=== PATIENT | female | born 1955 | race Caucasian/White ===

== ENCOUNTER 2020-03-07 09:14 | Outpatient (CLI) | payer OTHER, SELFPAY ==
--- NOTE | ~2020-03-07 | MM_ITS ---
EXAMINATION: MM screening [facility] w al HISTORY: Screening mammogram TECHNIQUE: Craniocaudal and mediolateral oblique 3-D tomosynthesis images were obtained and synthetic 2-D images were generated. CAD analysis was submitted and interpreted. COMPARISON: Comparison to multiple prior studies sequentially, with oldest reviewed study dated 10/2013. BREAST PARENCHYMAL COMPOSITION: There are scattered areas of fibroglandular density. FINDINGS: There is no evidence of suspicious mass, calcification, or architectural distortion to sugg est malignancy in either breast. There has been no suspicious interval change. IMPRESSION: 1. No mammographic evidence of malignancy. 2. Recommend routine screening mammography in one year. BI-RADS Category 1: Negative Reviewed, dictated and finalized at location A.
== END 2020-03-07 09:15 | disposition home or self-care (01) ==
LOC: ANHIMG 09:20
PROVIDERS: Visit Provider Obstetrics & Gynecology
DX: Z12.31 Encounter for screening mammogram for malignant neoplasm of breast (principal)
CPT/HCPCS: 77063; 77067

== ENCOUNTER 2021-03-12 10:00 | Outpatient (CLI) | payer MEDICARE, SELFPAY ==
--- NOTE | ~2021-03-12 | MM_ITS ---
EXAMINATION: MM screening [facility] w al HISTORY: Screening mammogram TECHNIQUE: Craniocaudal and mediolateral oblique 3-D tomosynthesis images were obtained and synthetic 2-D images were generated. CAD analysis was submitted and interpreted. COMPARISON: 03/07/2020, 03/06/2019, 03/02/2018 BREAST PARENCHYMAL COMPOSITION: The breasts are heterogeneously dense, which may obscure small masses . FINDINGS: Scattered benign-appearing calcifications are present. There is no evidence of suspicious m ass, calcification, or architectural distortion to suggest malignancy in either breast. There has bee n no suspicious interval change. IMPRESSION: 1. No mammographic evidence of malignancy. 2. Recommend routine screening mammography in one year. BI-RADS Category 2: Benign finding(s). Reviewed, dictated and finalized at location A.
== END 2021-03-12 10:01 | disposition home or self-care (01) ==
LOC: ANHIMG 10:06
PROVIDERS: PCP Family Medicine; Visit Provider Obstetrics & Gynecology
DX: Z12.31 Encounter for screening mammogram for malignant neoplasm of breast (principal)
CPT/HCPCS: 77063; 77067

== ENCOUNTER 2022-03-16 09:48 | Outpatient (CLI) | payer MEDICARE, SELFPAY ==
--- NOTE | ~2022-03-16 | MM_ITS ---
EXAMINATION: MM screening [facility] w al HISTORY: Screening mammogram TECHNIQUE: Craniocaudal and mediolateral oblique 3-D tomosynthesis images were obtained and synthetic 2-D images were generated. CAD analysis was submitted and interpreted. COMPARISON: 03/12/2021, 03/07/2020, 03/06/2019 BREAST PARENCHYMAL COMPOSITION: The breasts are heterogeneously dense, which may obscure small masses . FINDINGS: Scattered benign-appearing calcifications are present. There is no suspicious mass, calcifi cation, or architectural distortion to suggest malignancy in either breast. There has been no suspici ous interval change. IMPRESSION: 1. No mammographic evidence of malignancy. 2. Recommend routine screening mammography in one year. BI-RADS Category 2: Benign finding(s). Reviewed, dictated and finalized at location A.
== END 2022-03-16 09:49 | disposition home or self-care (01) ==
LOC: ANHIMG 09:49
PROVIDERS: PCP Family Medicine; Visit Provider Obstetrics & Gynecology
DX: Z12.31 Encounter for screening mammogram for malignant neoplasm of breast (principal)
CPT/HCPCS: 77063; 77067

== ENCOUNTER 2023-03-18 08:34 | Outpatient (CLI) | payer MEDICARE, SELFPAY ==
--- NOTE | ~2023-03-18 | MM_ITS ---
EXAMINATION: MM screening [facility] w al HISTORY: Screening mammogram TECHNIQUE: Craniocaudal and mediolateral oblique 3-D tomosynthesis images were obtained and synthetic 2-D images were generated. CAD analysis was submitted and interpreted. COMPARISON: 03/16/2022, 03/12/2021, 03/07/2020 bilateral screening mammogram examinations BREAST PARENCHYMAL COMPOSITION: The breasts are heterogeneously dense, which may obscure small masses . FINDINGS: Scattered bilateral benign calcifications. There is no evidence of suspicious mass, calcifi cation, or architectural distortion to suggest malignancy in either breast. There has been no suspici ous interval change. IMPRESSION: 1. No mammographic evidence of malignancy. 2. Recommend routine screening mammography in one year. BI-RADS Category 2: Benign finding(s). Reviewed, dictated and finalized at location A.
== END 2023-03-18 08:35 | disposition home or self-care (01) ==
PROVIDERS: PCP Family Medicine; Visit Provider Obstetrics & Gynecology
DX: Z12.31 Encounter for screening mammogram for malignant neoplasm of breast (principal)
CPT/HCPCS: 77063; 77067

== ENCOUNTER 2024-05-10 09:49 | Outpatient (CLI) | payer MEDICARE, SELFPAY ==
--- NOTE | ~2024-05-10 | MM_ITS ---
EXAMINATION: MM screening [facility] w al HISTORY: Screening TECHNIQUE: Craniocaudal and mediolateral oblique 3-D tomosynthesis images were obtained and synthetic 2-D images were generated. CAD analysis was submitted and interpreted. COMPARISON: Comparison to multiple prior studies sequentially, with oldest reviewed study dated 03/02. BREAST PARENCHYMAL COMPOSITION: Not dense: There are scattered areas of fibroglandular density. FINDINGS: There is no evidence of suspicious mass, calcification, or architectural distortion to sugg est malignancy in either breast. There has been no suspicious interval change. IMPRESSION: 1. No mammographic evidence of malignancy. 2. Recommend routine screening mammography in one year. BI-RADS Category 1: Negative Reviewed, dictated and finalized at location B.
== END 2024-05-10 09:50 | disposition home or self-care (01) ==
LOC: ANHIMG 09:51
PROVIDERS: PCP Family Medicine; Visit Provider Obstetrics & Gynecology
DX: Z12.31 Encounter for screening mammogram for malignant neoplasm of breast (principal)
CPT/HCPCS: 77063; 77067

== ENCOUNTER 2025-06-06 14:01 | Outpatient (CLI) | payer MEDICARE, SELFPAY ==
--- NOTE | ~2025-06-06 | MM_ITS ---
EXAMINATION: MM screening [facility] BI w al HISTORY: Screening TECHNIQUE: Craniocaudal and mediolateral oblique 3-D tomosynthesis images were obtained and synthetic 2-D images were generated. CAD analysis was submitted and interpreted. COMPARISON: Comparison to multiple prior studies sequentially, with oldest reviewed study dated 03/06/2029. BREAST PARENCHYMAL COMPOSITION: Not dense: There are scattered areas of fibroglandular density. FINDINGS: There is no evidence of suspicious mass, calcification, or architectural distortion to suggest malignancy in either breast. There has been no suspicious interval change. IMPRESSION: 1. No mammographic evidence of malignancy. 2. Recommend routine screening mammography in one year. BI-RADS Category 1: Negative Reviewed, dictated and finalized at location B.
--- OUTSIDE RECORDS SUMMARY | 2025-06-06 14:11 | XMS_ITS | Clinical Summary ---
Author Organization [facility] Address [address] [place] [address] Care Team Providers Care Firer Boiler Name Role Phone Dave Canada MD Primary Care Provider [phone] Allergies Active Allergy Reactions Criticality Noted Date Comments Clindamycin Other (see comment) 08/05/2022 Metallic taste and nausea Latex Rash Medium 10/07/2015 Sensitivity to adhesives Morphine Hallucinations 08/24/2012 Oxycodone-Acetaminophe n Nausea and Vomiting Low 07/19/2009 Penicillins Rash Medium 10/07/2015 Sulfa Antibiotics Hives,Rash,Unknown Low 03/16/2012 Medications fexofenadine (ALLYSON) 180 MG tablet Take 1 tablet (180 mg total) by mouth daily. 03/15/20 18 Active docusate sodium 100 MG capsule Take 1 capsule (100 mg total) by mouth 2 (two) times daily. Active Multiple Vitamins-Minera ls (MULTIVITAMIN ADULT OR) Take 1 tablet by mouth daily. Active XARELTO 20 MG Tab tablet Take 1 tablet (20 mg total) by mouth every morning. 1 01/05/20 19 Active REPATHA SURECLICK 140 MG/ML injection (PEN) 12/17/19 21 Active sotalol (BETAPACE) 80 MG tablet Take 1 tablet (80 mg total) by mouth every 12 (twelve) hours. 07/06/20 22 Active vitamin D3, cholecalciferol , 5000 UNITS capsule Take 1 capsule (5,000 Units total) by mouth daily. Active Multiple Vitamins-Minera ls (HAIR/SKIN/NAIL S) Tab Take 2 capsules by mouth daily. Active estradiol (ESTRACE) 1 MG tablet Take 1 tablet (1 mg total) by mouth daily. 10/30/19 23 Active levothyroxine (SYNTHROID) 100 MCG tabletIndicatio ns:Hypothyroidi sm, unspecified type Take 1 tablet (100 mcg total) by mouth every morning. Please have ordered labs done 90 tablet 1 12/08/19 25 Active valACYclovir (VALTREX) 1 g tabletIndicatio ns:Herpes labialis TAKE 2 TABS BY MOUTH TWICE A DAY FOR 2 DOSES NEEDED FOR FEVER BLISTER 30 tablet 05/22/20 25 Active sertraline (ZOLOFT) 25 MG tabletIndicatio ns:Mild episode of recurrent major depressive disorder TAKE 1 TABLET (25 MG TOTAL) BY MOUTH DAILY. 90 tablet 06/01/20 25 Active sertraline (ZOLOFT) 25 MG tabletIndicatio ns:Mild episode of recurrent major depressive disorder Take 1 tablet (25 mg total) by mouth daily. 90 tablet 1 12/08/19 25 025 Discontinued valACYclovir (VALTREX) 1 g tabletIndicatio ns:Herpes labialis TAKE 2 TABS BY MOUTH TWICE A DAY FOR 2 DOSES NEEDED FOR FEVER BLISTER 30 tablet 01/05/20 25 025 Discontinued Active Problems Problem Noted Date Diagnosed Date Lesion of left lower eyelid 08/21/2024 Vitamin D deficiency 06/08/2024 Assessment & Plan (06/12/2024 6:33 AM CDT): Continue vitamin D supplements. Will get vitamin D level. Adjust dose accordingly. Obstructive sleep apnea 12/08/2023 Assessment & Plan (12/10/2024 8:35 AM CDT): Stable. Continue CPAP machine/mask compliantly with good/proper sleep hygiene. Exercise, lose weight and stay active. Follow pulmonology. Assessment & Plan (06/12/2024 6:32 AM CDT): Recently diagnosed with obstructive sleep apnea. Continue CPAP machine/mask compliantly and faithfully. Tolerating well. Good/proper sleep hygiene. Exercise and lose weight. Follow pulmonology. Assessment & Plan (12/08/2023 10:10 AM CDT): Newly diagnosed obstructive sleep apnea. Currently on CPAP machine/mask and tolerating well. Advised to continue compliantly and faithfully. Continue good/proper sleep hygiene. Exercise, lose weight and stay active. Follow pulmonology. Snoring 03/31/2023 Assessment & Plan (03/31/2023 3:38 PM CDT): Snoring getting worse at night. Refer patient to ENT/sleep medicine for further evaluation. Primary osteoarthritis of left knee 09/08/2022 Assessment & Plan (12/10/2024 8:37 AM CDT): SP left total knee replacement. She is ambulating well and continues to do well. Continue exercise learned from PT. Assessment & Plan (06/12/2024 6:34 AM CDT): SP left total knee replacement. She continues to do well. Ambulating well. Continue exercises learned from PT. Assessment & Plan (12/08/2023 10:10 AM CDT): SP left total knee replacement. Ambulating well and continues to do well. Continue exercises learned from PT. Follow-up Ortho. Assessment & Plan (01/06/2023 4:52 PM CDT): SP total knee replacement. She continues to do well. Ambulating well. Continue exercises learned from PT. Follow-up Ortho. Assessment & Plan (11/10/2022 7:39 AM TIRE SHOP MANAGER): SP left total knee replacement. Patient continues to do well. No complications noted. She is ambulating well without a cane. Continue exercises learned from PT. Follow-up Ortho. Assessment & Plan (09/23/2022 11:37 AM TIRE SHOP MANAGER): SP left total knee replacement. Patient did well and tolerated procedure well. No complications noted. Incision site healing nicely, dry with no sign of infection. Undergoing home PT. Currently on Eliquis 2.5 mg twice daily, [place] for pain. She may take Tylenol Extra Strength every 8 hours as needed for mild to moderate pain and [place] for severe pain only. We will get records for my review. Assessment & Plan (09/08/2022 5:00 PM TIRE SHOP MANAGER): Scheduled for left total knee replacement September 16. Refer to cardiology for cardiac clearance. Preoperative clearance 09/08/2022 Assessment & Plan (09/08/2022 4:27 PM TIRE SHOP MANAGER): Scheduled for left total knee replacement March 16. Patient has appointment with cardiology this coming Wednesday for cardiac clearance. Hyperglycemia 09/08/2022 Assessment & Plan (11/10/2022 7:40 AM TIRE SHOP MANAGER): A1c is only 5.5. Continue diet and exercise. Monitor. See ophthalmology regular. Foot care. Assessment & Plan (09/08/2022 5:05 PM TIRE SHOP MANAGER): Recent glucose 132--nonfasting though. Will get fasting BMP/hemoglobin A1c. For now diet and exercise.--Low-cholesterol/carbohydrate diet. See ophthalmology regular. Foot care. Consider low-dose metformin if indicated. Easy fatigability 07/13/2022 Assessment & Plan (03/31/2023 3:40 PM CDT): Multifactorial. First and foremost possible obstructive sleep apnea. We will go ahead and refer patient to sleep medicine. She has depression which pretty much is controlled with Zoloft, hypothyroidism. We will go ahead and get routine blood test including CBC, CMP, TSH reflex and vitamin B12 plus folate. Advised patient to try to stay active. Assessment & Plan (07/13/2022 7:20 AM TIRE SHOP MANAGER): Multifactorial: Patient has hypothyroidism, possible depression, and possible obstructive sleep apnea. Recent routine blood tests were unremarkable.-Recommend getting sleep study but patient declined for now. She will let me know. We will continue to monitor. Depression 06/23/2022 Assessment & Plan (12/10/2024 8:36 AM CDT): Denies suicidal ideation. In good spirits. Responding well with low-dose Zoloft 25 mg daily. Assessment & Plan (06/12/2024 6:34 AM CDT): In good spirits. Continue Zoloft 25 mg daily. Denies any suicidal ideation/self-harm. Assessment & Plan (12/08/2023 10:10 AM CDT): In good spirits. Denies suicidal ideation/self-harm. Responding well with Zoloft 25 mg daily. Assessment & Plan (03/31/2023 3:38 PM CDT): In good spirits. States she is responding well with increased dose of Zoloft to 50 mg daily. Denies any adverse reactions. Denies any suicidal ideation or self-harm. States she has good and positive attitude towards things. States no longer depressed. We will continue same dose compliantly and faithfully. Assessment & Plan (01/06/2023 4:49 PM CDT): We will start patient on low-dose Zoloft 25 mg daily. If tolerating in 2 weeks, will increase to 50 mg daily as a maintenance dose. Patient concerned about the adverse effects. States she is sensitive to antidepressants. Did not tolerate antidepressant years ago. Concerned about her A-fib. Per her chicken cleaner, will get EKG after 1 week of taking antidepressant. Discussed adverse effects/interactions with patient. Likewise discussed with patient that it will take at least 3 to 4 weeks for Zoloft to completely kick in. She should take it compliantly and faithfully. Reevaluate patient in 6 weeks. Counseling done. Assessment & Plan (07/13/2022 7:19 AM TIRE SHOP MANAGER): So so far she is doing well. She is feeling much better compared from last visit. States she does not need any medication yet for now. Denies any suicidal ideation/self-harm. We will continue to monitor. Assessment & Plan (06/23/2022 1:49 PM CDT): Situational/reactive depression. Will monitor for now. She denies any suicidal ideations or self-harm. If becomes persistent, will start patient on SSRIs: Lexapro or Zoloft. Patient agreed to the stated plan and go from there. She will update me. Counseling done. Chronic pain of left knee 06/02/2022 Primary osteoarthritis of right knee 07/17/2021 Left lower quadrant pain 06/09/2021 Assessment & Plan (01/05/2022 8:15 AM CDT): CT of abdomen and pelvis showed epiploic appendagitis.--Left lower quadrant pain is completely resolved. Monitor. Assessment & Plan (06/09/2021 1:13 PM CDT): Left lower quadrant pain left suprapubic pain with tenderness-clinically possibly acute diverticulitis versus UTI. Will get UA reflex. Consider CT of the abdomen and pelvis.--UA consistent with UTI. Colonoscopy reviewed and noted no diverticulosis. Start patient empirically on Cipro 500 mg twice daily for 10 days. Encourage increase fluid/water intake. Await culture and sensitivity. Repeat UA in 12 days. Advised to call me for several to ER. Thrombosed external hemorrhoids 04/07/2021 Adenomatous polyp of descending colon 04/07/2021 S/P left knee arthroscopy 03/11/2021 Primary osteoarthritis of both knees 02/05/2021 Assessment & Plan (07/13/2022 7:19 AM TIRE SHOP MANAGER): Currently on Mobic 15 mg daily. She is scheduled for left total knee replacement sometime in September 2022. Discussed again adverse effects/reactions of chronic usage of NSAIDs. She was advised always take it with food. Follow-up Ortho. Assessment & Plan (01/05/2022 8:16 AM CDT): So far doing well. She takes only one half of Mobic 15 mg daily. She was advised to always take it with food. Discussed adverse effects of chronic usage of NSAIDs. Follow-up orthopedic. Assessment & Plan (02/05/2021 10:08 AM CDT): Bilateral severe OA. Recent effusion of left knee SP irrigation debridement. Arthrocentesis of left knee suggestive of inflammatory arthritis, virtually a consideration. Patient did well with no complications noted. She is currently undergoing PT. Responding well with meloxicam and hydrocodone. She continues to do well. Recently had intra-articular cortisone injection of left knee. Patient eventually will need left total knee replacement. Follow-up Ortho. Diarrhea 12/18/2020 Assessment & Plan (07/13/2022 7:18 AM TIRE SHOP MANAGER): Diarrhea is resolved. Had both colonoscopy and CT scan of the abdomen which were unremarkable. Assessment & Plan (06/23/2022 1:53 PM CDT): Patient recently had colonoscopy and CT of the abdomen--unremarkable. Diarrhea yesterday and better today with mild nausea and chills.--More likely viral in nature. Advised patient to monitor for now. Increase fluids/water/Gatorade. [place] and crackers for now. She was advised to start taking Benefiber or Citrucel drink daily when diarrhea is completely resolved for her to have good bowel movements and avoid constipation. Start high-fiber diet. She may try MiraLAX as needed if no bowel movement in more than 3 days. Monitor. Assessment & Plan (02/05/2021 9:51 AM CDT): Diarrhea is resolved. Patient may need to update her colonoscopy. Refer to Dr. Novak. Assessment & Plan (12/19/2020 6:04 AM CDT): Diarrhea possibly viral. We will continue to monitor for now. Treat patient supportively and symptomatically. She was encouraged to increase fluid intake--Gatorade and water only for now. Start with brat diet/toast and crackers. Rest. She was advised to call me if not any better or worse in couple of days or go to ER. COVID-19 07/18/2020 Assessment & Plan (08/13/2020 2:48 PM TIRE SHOP MANAGER): She tested positive with COVID-19 July 18. Symptoms started July 10. She is back to her normal self. She is completely asymptomatic. She is doing well. She was advised to continue social distancing, wearing facemask/shield, handwashing, sneeze and cough hygiene. Assessment & Plan (07/21/2020 1:15 PM TIRE SHOP MANAGER): Loss of sense of smell, increased sinus pressure with nasal congestion, headache, myalgia, on and off diarrhea--possibly due to Covid. Patient exposed to who tested Covid negative and was discharged admitted to hospital. Will get COVID-19 testing/nasopharyngeal swab today. For now treat patient supportively being conservatively. Follow guidelines/protocol per CDC which was discussed at length with patient. Advised self isolate at least for 10 to 14 days, social distancing, wearing facemask/shield, handwashing, sneeze and cough hygiene. Rest and increase fluids. May take Tylenol Extra Strength 1-2 every hours as needed or Motrin 400 to 600 mg 3 times daily as needed. May take Zyrtec 10 mg nightly. Counseling/education done. Patient verbalized understanding. We will continue to monitor and follow patient. Atrial fibrillation ([facility]) 05/27/2020 Assessment & Plan (12/10/2024 8:34 AM CDT): Stable and controlled. Remaining in sinus rhythm. She denies any symptoms of heart failure. Continue sotalol 80 mg twice daily, Xarelto 20 mg daily. Follow-up cardiology. Assessment & Plan (06/12/2024 6:31 AM CDT): Stable. In sinus rhythm. Denies any symptoms of heart failure. Continue sotalol 80 mg twice daily as ordered. Xarelto 10 mg daily. Follow-up cardiology. Assessment & Plan (12/08/2023 10:09 AM CDT): Stable and controlled. In sinus rhythm per auscultation. Denies any symptoms of heart failure. Denies any anginal symptoms as well. Currently on sotalol 80 mg twice daily, Xarelto 10 mg daily. Just recently diagnosed with obstructive sleep apnea and currently using CPAP machine/mask compliantly. Follow-up cardiology. Assessment & Plan (03/31/2023 3:42 PM CDT): States she had short runs of A-fib the other night with spontaneous resolved. She was advised to continue her current medication compliantly including sotalol 80 mg twice daily, Xarelto 10 mg daily. She was advised to call her chicken cleaner if it happens again. She should get sleep study to rule out obstructive sleep apnea.--Refer to sleep apnea medicine. Assessment & Plan (01/06/2023 4:50 PM CDT): Seen recently by cardiology. History of SP multiple ablations. She is remaining sinus rhythm. Denies any symptoms heart failure. She was advised to continue same current medications/regimen including sotalol 80 mg twice daily, Xarelto 10 mg daily. She is no longer taking Eliquis. Not on baby aspirin as well. Assessment & Plan (11/10/2022 7:38 AM TIRE SHOP MANAGER): History of SP multiple ablations. In sinus rhythm. Denies symptoms of heart failure. Continue same meds: Sotalol 80 mg twice daily, Xarelto 20 mg daily. Eliquis was discontinued. Not any baby aspirin. Follow-up cardiology. Assessment & Plan (09/23/2022 11:37 AM TIRE SHOP MANAGER): History of SP multiple ablations. Remaining sinus rhythm. No symptoms of heart failure. Continue sotalol 80 mg twice daily, currently on Eliquis instead of Xarelto. Not any baby aspirin. Follow-up cardiology. Assessment & Plan (09/08/2022 5:05 PM TIRE SHOP MANAGER): History of SP multiple ablations. In sinus rhythm. Denies any symptoms of heart failure. She is currently on sotalol 80 mg twice daily, Xarelto 20 mg daily. She is no longer taking baby aspirin. Has follow-up appointment with cardiology this Wednesday. We will get TSH reflex. Assessment & Plan (07/13/2022 7:17 AM TIRE SHOP MANAGER): Stable and controlled. In sinus rhythm. No symptoms of heart failure. Continue current meds: Sotalol, baby aspirin. She is no longer taking Xarelto. Follow-up cardiology. Assessment & Plan (06/23/2022 1:50 PM CDT): Stable and controlled. In sinus rhythm. Denies any symptoms heart failure. States she is still taking sotalol 120 mg twice daily, baby aspirin. She is no longer taking Xarelto. States she will discuss with cardiology if she can stop sotalol. Assessment & Plan (01/05/2022 8:15 AM CDT): Stable and controlled. In sinus rhythm. Denies any symptoms of heart failure. Continue same regimen including sotalol 120 mg twice daily, baby aspirin. Currently off Xarelto. Follow-up cardiology. Assessment & Plan (02/05/2021 10:06 AM CDT): Stable and controlled. She remains in sinus rhythm. Denies any symptoms of heart failure. Continue sotalol 120 mg twice daily, baby aspirin daily. She is off Xarelto. She continues to do well. Follow-up cardiology. Assessment & Plan (08/13/2020 2:46 PM TIRE SHOP MANAGER): Stable and controlled. Remain in sinus rhythm. Denies chest pain/shortness of breath/any symptoms of heart failure. Continue sotalol 120 mg twice daily and baby aspirin daily. She is now currently off Xarelto. Follow-up cardiology. Assessment & Plan (06/19/2020 9:57 AM CDT): Stable and well controlled. She continues to remain in sinus rhythm. Denies any symptoms of heart failure. Denies chest pain/shortness of breath/palpitation. Seen recently by cardiology and discontinued Xarelto and was advised to continue sotalol 120 mg twice daily and was started on baby aspirin daily. Follow-up cardiology. Assessment & Plan (05/27/2020 11:20 AM CDT): Currently on sotalol 120 mg twice daily. States she is off Xarelto now. Advised to continue baby aspirin daily. She remains in sinus rhythm. She continues to do well. Follow-up cardiology. Mixed hyperlipidemia 05/27/2020 Assessment & Plan (12/10/2024 8:35 AM CDT): Lipids controlled with normal LFTs. Continue Repatha every 2 weeks per cardiology. Low-cholesterol/carbide diet. Stay active. Routine labs next visit. Assessment & Plan (06/12/2024 6:33 AM CDT): Lipid panel controlled. LFTs normal. Continue Repatha every 2 weeks per cardiology. Low-cholesterol/carbohydrate diet. Exercise and stay active. Will get routine blood test/labs. Assessment & Plan (12/08/2023 10:09 AM CDT): Lipid panel well-controlled with normal LFTs. Currently on Repatha every 2 weeks. Continue low-cholesterol/carbohydrate/salt diet. Exercise and stay active. Assessment & Plan (01/06/2023 4:51 PM CDT): Currently on Repatha every 2 weeks. Continue low-cholesterol/carbohydrate/salt diet. Assessment & Plan (11/10/2022 7:38 AM TIRE SHOP MANAGER): Responding with Repatha every 2 weeks. Continue low-cholesterol/carbohydrate diet. Stay active. Assessment & Plan (09/23/2022 11:38 AM TIRE SHOP MANAGER): Currently on Repatha every 2 weeks. Continue low-cholesterol/carbohydrate diet. Routine blood test next visit. Assessment & Plan (09/08/2022 4:59 PM TIRE SHOP MANAGER): Currently on Repatha every 2 weeks. Continue low-cholesterol/carbohydrate/salt diet. Routine blood test next visit. Assessment & Plan (07/13/2022 7:18 AM TIRE SHOP MANAGER): She is currently on Repatha every 2 weeks. Continue low- cholesterol/carbohydrate/salt diet. We will get routine blood test next visit. Stay active. Assessment & Plan (01/05/2022 8:17 AM CDT): She is now currently on Repatha every 2 weeks. Praluent injection was discontinued due to insurance. We will get routine blood test including lipid panel this month. Always stay on a low-cholesterol/salt diet. Exercise and stay active. Assessment & Plan (02/05/2021 10:08 AM CDT): Praluent injection was discontinued due to insurance reason. She is now currently on Repatha every 2 weeks. Will get lipids/LFTs next visit. Advised patient to continue low-cholesterol/carbohydrate/salt diet. Exercise and stay active. Assessment & Plan (08/13/2020 2:47 PM TIRE SHOP MANAGER): Stable and controlled. Continue Praluent injection per cardiology. Continue low-cholesterol/salt diet. Stay active. Assessment & Plan (06/19/2020 9:58 AM CDT): Stable and controlled. Continue Praluent injection per cardiology. Advised to always stay on a low-cholesterol/salt diet. Exercise stay active. Assessment & Plan (05/27/2020 10:46 AM CDT): Currently on Praluent injection. States she cannot tolerate statins. Advised patient to stay on a low-cholesterol/salt diet. Exercise and stay active. Will get routine blood tests/labs including lipid panel next week. Allergic rhinitis 05/27/2020 Assessment & Plan (12/10/2024 8:35 AM CDT): Stable and controlled. Continue Allyson 180 mg daily. Assessment & Plan (06/12/2024 6:32 AM CDT): Stable. Continue Allyson 180 mg daily. Assessment & Plan (12/08/2023 10:09 AM CDT): Stable and controlled. Continue Allyson 180 mg daily. Assessment & Plan (09/08/2022 5:00 PM TIRE SHOP MANAGER): Stable and controlled. Continue Allyson 180 mg daily. Assessment & Plan (02/05/2021 10:09 AM CDT): Stable and controlled. Continue Allyson 180 mg daily. Assessment & Plan (08/13/2020 2:46 PM TIRE SHOP MANAGER): Stable and controlled. Continue Allyson 180 mg daily. She was advised to avoid any decongestant. Assessment & Plan (06/19/2020 9:57 AM CDT): Stable and controlled. Continue Allyson 180 mg daily. Assessment & Plan (05/27/2020 10:42 AM CDT): Currently on Al[place]son 180 mg daily. Primary osteoarthritis involving multiple joints 05/27/2020 Assessment & Plan (08/13/2020 2:47 PM TIRE SHOP MANAGER): She has been doing well lately. She only takes Tylenol as needed. She no longer takes meloxicam and is doing well without it. Assessment & Plan (06/19/2020 9:57 AM CDT): Patient continues to do well without meloxicam. She discontinued meloxicam last visit as recommended. She takes Tylenol as needed only. So far she is doing well. Assessment & Plan (05/27/2020 10:43 AM CDT): Currently on meloxicam 15 mg daily. She was advised to take it only on as-needed basis and always take it with food. In between she may take Tylenol Extra Strength 1-2 every 8 hours as needed. Discussed adverse effect/reactions of chronic usage of NSAIDs. skilled nursing (current) use of anticoagulants 2019 Hypothyroidism 11/23/2014 Assessment & Plan (12/10/2024 8:36 AM CDT): TSH is normal. She is asymptomatic. Continue levothyroxine 100 mcg daily. Labs next visit. Assessment & Plan (06/12/2024 6:33 AM CDT): Recent TSH normal. She remains asymptomatic. Continue levothyroxine 100 mcg daily. Routine blood test including TSH reflex. Assessment & Plan (12/08/2023 10:09 AM CDT): TSH normal. Asymptomatic. Continue levothyroxine 100 mcg daily. Monitor. Assessment & Plan (03/31/2023 3:39 PM CDT): Her TSH 6 months ago was normal. We will continue same dose levothyroxine 100 mg daily. We will get TSH reflex and adjust dose accordingly. Assessment & Plan (01/06/2023 4:51 PM CDT): She remains asymptomatic. TSH is normal. Continue levothyroxine 100 mcg daily. Assessment & Plan (11/10/2022 7:39 AM TIRE SHOP MANAGER): TSH normal. She is asymptomatic. Continue levothyroxine 100 mcg daily. Assessment & Plan (09/23/2022 11:38 AM TIRE SHOP MANAGER): TSH normal. Asymptomatic. Continue levothyroxine 100 mcg daily. Monitor TSH. Assessment & Plan (09/08/2022 5:05 PM TIRE SHOP MANAGER): Last TSH normal. Continue levothyroxine 100 mcg daily. We will get TSH/reflex next week. Patient is asymptomatic. Assessment & Plan (07/13/2022 7:18 AM TIRE SHOP MANAGER): Last TSH normal. Continue same dose of levothyroxine 100 mcg daily. Routine blood test next visit including TSH. Assessment & Plan (01/05/2022 8:16 AM CDT): TSH normal. Continue levothyroxine 100 mcg daily. Asymptomatic. Will get routine blood test including TSH reflex next month. Assessment & Plan (02/05/2021 10:08 AM CDT): January 2021: TSH back to normal. Continue same dose of levothyroxine 100 mcg daily. Patient is asymptomatic. Assessment & Plan (08/13/2020 2:12 PM TIRE SHOP MANAGER): Last TSH 0.713 from 0.654--currently on levothyroxine 100 mcg daily from 112 mcg daily. We will continue to monitor. Repeat TSH in 3 months. Assessment & Plan (06/19/2020 9:30 AM CDT): Recent TSH 0.654--advised to continue levothyroxine 100 mcg daily. Repeat TSH in 1 month. Assessment & Plan (05/27/2020 10:45 AM CDT): Currently on levothyroxine 100 mcg daily. Will repeat TSH. Persistent atrial fibrillation ([facility] [facility] 11/23/2014 Resolved Problems Problem Noted Date Diagnosed Date Resolved Date Screening for colon cancer 01/10/2024 0 01/17/2024 Screening for colon cancer 01/10/2024 0 01/24/2024 Screening for colon cancer 01/10/2024 0 01/31/2024 Screening for colon cancer 01/10/2024 0 02/07/2024 Encounter for screening for malignant neoplasm of colon 02/25/2021 03/03/2021 Sore throat 12/18/2020 08/05/2022 Assessment & Plan (12/19/2020 6:07 AM CDT): Rapid strep negative. Sore throat actually is much better and almost resolved. We will continue to monitor. May take OTC lozenges. As stated above. Atrial flutter ([facility]) 11/29/2017 07/06/2019 Encounters Date Type Department Care Team Description 03/15/2025 Scan [facility] INFO SRVCS Scanned, Doc Med Group from Last 3 Months Immunizations Immunization Administration Dates Next Due Fluzone High Dose (IIV, triv alent, 0.5mL) 06/08/2024 Fluzone High Dose - >Age 65 (Prefilled Syringe) 05/26/2023,06/29/2022 Influenza (Generic) 05/30/2020,06/13/2018,2008 Influenza Adult (Generic) 06/25/2021,09/2019,06/06/2019,2013 MODERNA COVID-19 (INSTRUCTIONAL MEDIA SERVICES TECHNICIAN FLOYD YOVANNY), MRNA, LNP-S, PF, 50 MCG/ 0.25 ML DOSE 08/07/2021 Pneumococcal (Pneumovax 23) 04/23/2017, 7 Pneumococcal (Prevnar 13) 04/20/2016 Shingrix 09/04/2022,06/29/2022 Tdap (Adacel) 10/20/2019 Tdap (Historical Only-select from magnify glass) 10/20/2019 Family History Medical History Relation Comments Aneurysm Father Cancer Mother Relation Status Comments Father Mother Social History Tobacco Use Types Packs/Day Years Used Date Smoking Tobacco: Former Passive Smoke Exposure: Past Smokeless Tobacco: Never Tobacco Cessation:Counseling Given: No Passive Exposure Comments:cigarette smoker Alcohol Use Standard Drinks/Week Comments Not Currently 0 (1 standard drink = 0.6 oz pur e alcohol) PHQ-2 Answer Date Recorded Patient Health Questionnaire-2 Score 0 09/22/2024 Comments No Sex and Gender Information Value Date Recorded Sex Assigned at Female 09/19/2024 8:22 AM TIRE SHOP MANAGER Legal Sex Female 7:14 PM CDT Gender Identity Not on file Sexual Orientation Not on file Last Filed Vital Signs Vital Sign Reading Time Taken Comments Blood Pressure 122/64 12/07/2024 9:15 AM CDT Pulse 71 12/07/2024 9:15 AM CDT Temperature 36.7 C (98 F) 12/07/2024 9:15 AM CDT Respiratory Rate 18 12/07/2024 9:15 AM CDT Oxygen Saturation 96% 12/07/2024 9:15 AM CDT Inhaled Oxygen Concentration - - Weight 117.7 kg (259 lb 8 oz) 12/07/2024 9:15 AM CDT Height 177.8 cm (5' 10) 12/07/2024 9:15 AM CDT Body Mass Index 37.23 12/07/2024 9:15 AM CDT Plan of Treatment Upcoming Encounters Date Type Department Care Team (Late st Contact Info) Description 06/08/2025 9:40 AM CDT Office Visit [facility] [address] [place] [address] Dave Canada MD [address] [place] [address] Health Maintenance Due Date Last Done Comments Hepatitis C 1973 RSV Immunization or 60+ Years (1 - Risk 60-74 years 1-dose series) 2015 Annual Medicare Wellness Visit 2020 Dexa Scan (General) 2020 Mammogram Screening 03/18/2025 03/18/2023, 03/16/2022, 03/12/2021 COVID-19 Vaccine ( season) 2025 08/07/2021, 11/06/2020, 10/09/2020 DTaP, Tdap and Td Vaccines (3 - Td or Tdap) 10/20/2029 10/20/2019, 10/20/2019 Colorectal Cancer Screening Colonoscopy (10 Years) 03/20/2031 03/20/2021, 03/20/2021, 03/20/2021, Additional history exists Pneumococcal Vaccine: 50+ Years Completed 04/23/2017, 01/02/2017, 04/20/2016 Zoster Vaccines Completed 09/04/2022, 06/29/2022 PHQ-2 (Physician [place]) Completed 09/22/2024 Meningococcal B Vaccine Aged Out No l onger eligible based on patient's age to complete this topic Meningococcal Vaccine Aged Out No delmy gloria eligible based on patient's age to complete this topic RSV Immunizations Under 20 Months Aged Out No longer eligible based on patient's age to complete this topic Procedures Procedure Name Priority Date/Time Associated Diagnosis Comments MAMMOGRAM GENERIC (SCAN ORDER) 03/18/2023 COLONOSCOPY Routine 03/20/2021 8:42 AM CDT from Last 3 Months or Most Recently Relevant to Health Maintenance Results * MAMMOGRAM GENERIC (03/18/2023) Anatomical Region Laterality Modality Other 03/18/2023 us Doc [facility] Scanned SCANNING Final Resu lt * COLONOSCOPY (03/20/2021) us Documents Scanned SCANNING Final Result [facility] from Last 3 Months or Most Recently Relevant to Health Maintenance Insurance [employer] MEDICARE Care Teams Firer Boiler Relationship Specialty Start Date End Date Dave Canada MD PCP - General FAMILY PRACTICE 03/29/20
--- OUTSIDE RECORDS SUMMARY | 2025-06-06 14:11 | XMS_ITS | Encounter Summary ---
Author Organization [facility] Address [address] [place] [address] Care Team Providers Care Head Of Transport Logistics Name Role Phone Dave Canada MD Primary Care Provider [phone] Encounter Details Date Type Department Care Team (Latest Contact Info) Description 08/04/1999 Outpatient Historical HIS [facility] Cintron, Vasu Moore MD NO ADDRESS ON FILE Other screening mammogram (Primary Dx) Social History Tobacco Use Types Packs/Day Years Used Date Smoking Tobacco: Never Assessed Comments Unknown Sex and Gender Information Value Date Recorded Sex Assigned at Not on file Legal Sex Female 3:55 AM UNIVERSITY RELATIONS VICE PRESIDENT Gender Identity Not on file Sexual Orientation Not on file documented as of this encounter Plan of Treatment Upcoming Encounters Date Type Department Care Team (Late st Contact Info) Description 10/18/2025 1:30 PM UNIVERSITY RELATIONS VICE PRESIDENT Office Visit [facility] Heart and Vascular Electrophysiology - [address] [address] [facility] [address] [place] [address] [place] [address] [facility] [address] [place] [address] documented as of this encounter Visit Diagnoses Diagnosis Other screening mammogram- Primary documented in this encounter Additional Health Concerns Infection Onset Date Last Indicated Resolved Time COVID-19 Comment:Added from external infection. Tested at [facility] 07/18/2020 04/02/2022 6:13 AM C DT documented as of this encounter Care Teams Head Of Transport Logistics Relationship Specialty Start Date End Date Dave Canada MD PCP - General Family Practice 01/08/21 documented as of this encounter
--- OUTSIDE RECORDS SUMMARY | 2025-06-06 14:11 | XMS_ITS | Encounter Summary ---
Author Organization [facility] Address [address] [place] [address] Care Team Providers Care Virtual Assistant For Advertisers Name Role Phone Dave Canada MD Primary Care Provider [phone] Encounter Details Date Type Department Care Team (Latest Contact Info) Description 07/26/2001 Outpatient Historical HIS [facility] Cintron, Vasu Moore MD NO ADDRESS ON FILE SCREENING MAMM-MAILG NEOPL-OTHER (Primary Dx) Social History Tobacco Use Types Packs/Day Years Used Date Smoking Tobacco: Never Assessed Comments Unknown Sex and Gender Information Value Date Recorded Sex Assigned at Not on file Legal Sex Female 3:55 AM AIR DEFENCE OFFICER Gender Identity Not on file Sexual Orientation Not on file documented as of this encounter Plan of Treatment Upcoming Encounters Date Type Department Care Team (Late st Contact Info) Description 10/18/2025 1:30 PM AIR DEFENCE OFFICER Office Visit [facility] Heart and Vascular Electrophysiology - [address] [facility] [address] [address] [facility] [address] [place] [address] [place] [address] [facility] [address] [place] [address] documented as of this encounter Visit Diagnoses Diagnosis Other screening mammogram- Primary documented in this encounter Additional Health Concerns Infection Onset Date Last Indicated Resolved Time COVID-19 Comment:Added from external infection. Tested at [facility] 07/18/2020 04/02/2022 6:13 AM C DT documented as of this encounter Care Teams Virtual Assistant For Advertisers Relationship Specialty Start Date End Date Dave Canada MD PCP - General Family Practice 01/08/21 documented as of this encounter
--- OUTSIDE RECORDS SUMMARY | 2025-06-06 14:11 | XMS_ITS | Clinical Summary ---
Author Organization [facility] Address [address] [place] [address] Care Team Providers Care Ship Joiner Name Role Phone Dave Canada MD Primary Care Provider [phone] Allergies Active Allergy Reactions Criticality Noted Date Comments Morphine Hallucinations Medium 07/19/2009 Penicillins Hives Medium 12/27/2020 Sulfa (Sulfonamide Antibiotics) Hives,Rash,Other (See comments) Medium 03/16/2012 Sores in mouth Medications multivitamin tablet Take 2 tablets by mouth daily Active levothyroxine (SYNTHROID) 100 mcg tablet Take 100 mcg by mouth daily 1 Active fexofenadine (ALLYSON) 180 mg tablet Take 1 tablet by mouth daily 8 Active Repatha SureClick 140 mg/mL pen injector Inject 1 mL under the skin every 2 (two) weeks Last dose 08/27 1 Active Elestrin 0.87 gram/actuation gel in metered-dose pump 1 application daily 1 Active docusate sodium (COLACE) 100 mg capsule Take 100 mg by mouth daily 8 Active sotaloL (BETAPACE) 80 mg tablet Take 80 mg by mouth 2 (two) times a day 2 Active magnesium citrate 100 mg tablet Take 250 mg by mouth daily Active B.animalis,bifi d,infantis,long 10-15 mg tablet,delayed release (DR/EC) Take 1 capsule by mouth daily Active movfwnvp-sgr-gj lic acid-biotin 66.7-1,000 mcg tablet Take 2 capsules by mouth daily Active cholecalciferol (VITAMIN D-3) 5,000 unit capsule Take 5,000 Units by mouth daily Active HYDROcodone-meeta taminophen (NORCO) 5-325 mg per tabletIndicatio ns:Pain Take 1-2 tablets by mouth every 4 (four) hours as needed for pain 60 tablet 3 Active Additional Information Patient not taking.Reported on 10/29/2022 senna-docusate (PERICOLACE) 8.6-50 mg Take 1 tablet by mouth daily 30 tablet 2 3 Active Additional Information Patient not taking.Reported on 10/29/2022 Xarelto 20 mg tablet 3 Active clindamycin (CLEOCIN) 300 mg capsuleIndicati ons:S/P TKR (total knee replacement) using cement, left Take 2 tablets one hour prior to dental visit 4 capsule 3 Active Active Problems Problem Noted Date Diagnosed Date S/P TKR (total knee replacement) using cement, l eft 09/16/2022 Chronic pain of left knee 06/02/2022 Primary osteoarthritis of left knee 07/17/2021 Primary osteoarthritis of right knee 07/17/2021 s/p left knee arthroscopic d ebridement on 12/29/[address] Peña 03/11/2021 Resolved Problems Problem Noted Date Diagnosed Date Resolved Date Inflammatory arthritis 07/16/202107/17 Surgical History Surgery Date Site/Laterality Comments CARDIAC ELECTROPHYSIOLOGY MAPPING AND ABLATION 03/06/2022 - 04/05/2022 N/A two other ablations 2007 & 2009 HYSTERECTOMY 09/06/1992 - 09/05/1993 N/A CHOLECYSTECTOMY 09/06/1995 - 09/05/1996 N/A Medical History Medical History Date Comments A-fib (HCC) Hypercholesteremia Thyroid disease Hypothyroidism Allergic rhinitis Obesity Family History Medical History Relation Name Comments Cancer Brother Aneurysm Father Cancer Mother Relation Name Status Comments Brother Father Mother Social History Tobacco Use Types Packs/Day Years Used Date Smoking Tobacco: Former Cigarettes 0.5 5 1 975 - 1980 Smokeless Tobacco: Never Tobacco Cessation:Counseling Given: Not Answered Social Connection and Isolation Panel Answer Date Recorded In a typical week, how many times do you talk on the phone with family, friends, or neighbors? More than three times a week 09/17/2022 How often do you get togethe r with friends or relatives? More than three times a week 09/17/2022 How often do you attend chur ch or spiritism services? Never 09/17/2022 Do you belong to any clubs o r organizations such as jainism groups, unions, fraternal or athletic groups, or school groups? No 09/17/2022 How often do you attend meet ings of the clubs or organizations you belong to? Never 09/17/2022 Are you , , di vorced, , never , or living with a partner? 09/17/2022 AUDIT-C Answer Date Recorded Q1: How often do you have a drink containing alc ohol? Never 09/16/2022 Average Number of Drinks Not on file 023 Frequency of Binge Drinking Not on file 09/06 Overall Financial Resource Strain (CARDIA) Answe r Date Recorded How hard is it for you to pa y for the very basics like food, housing, medical care, and heating? Not hard at all 09/17/2022 PRAPARE - Transportation Answer Date Re corded In the past 12 months, has l ack of transportation kept you from medical appointments or from getting medications? No 09/06 In the past 12 months, has l ack of transportation kept you from meetings, work, or from getting things needed for daily living? No 09/17/2022 Personal Safety Answer Date Recorded Getting School Help Needed Denies 08/22 Comments No Sex and Gender Information Value Date Recorded Sex Assigned at Not on file Legal Sex Female 9:40 AM SOURCING ANALYST Gender Identity Not on file Sexual Orientation Not on file Occupation Industry Job Start Date Job End Date retired Not on file Not on file Not on file Obstetrics History Last Filed Vital Signs Vital Sign Reading Time Taken Comments Blood Pressure 108/64 09/17/2022 12:00 PM SOURCING ANALYST Pulse 67 09/17/2022 12:00 PM SOURCING ANALYST Temperature 36.7 C (98 F) 09/17/2022 12:00 PM SOURCING ANALYST Respiratory Rate 18 09/17/2022 12:00 PM SOURCING ANALYST Oxygen Saturation 96% 09/17/2022 12:00 PM SOURCING ANALYST Inhaled Oxygen Concentration - - Weight 98.9 kg (218 lb) 09/16/2023 9:23 AM SOURCING ANALYST Height 177.8 cm (5' 10) 09/16/2023 9:23 AM SOURCING ANALYST Body Mass Index 31.28 09/16/2023 9:23 AM SOURCING ANALYST Plan of Treatment Health Maintenance Due Date Last Done Comments Breast Cancer Screening-Mammogram 1955 Colon Cancer Screening-Colonoscopy 1955 Depression Screening 1955 Hepatitis C Screening 1955 Osteoporosis Screening-Bone Density Scan 1955 Hepatitis B Screening 1973 Well Visit 65+ 2020 Fall Risk Assessment 09/17/2023 09/17/2022 Covid-19 Vaccine (2024-2 6 season) 2025 08/07/2021, 11/06/2020, 10/09/2020 Influenza Vaccine (#1) 2025 2, 06/25/2021, 06/06/2020, Additional history exists DTaP/Tdap/Td Vaccine (2 - Td or Tdap) 10/20/2029 10/20/2019 Pneumococcal vaccine 65+ Completed 017, 01/02/2017, 04/20/2016 Zoster Vaccine Completed 09/04/2022, 06/29/2022 Medical Devices Implanted Type Area Fitter Welder Device Identifier Shelf Expiration Date Model / Serial / Lot [employer]/Or tho Journey Bicruciate Stabilize Knee Left 4 Baseplate Tibial [id number] - [id number] Implanted:Qty: 1 on 09/16/2022 by Ismael Pizano MD at [facility] [employer] [id number] 05/18/2032 [id number] / / [id number] [employer]Or [employer] Journey Ii Cruciate Retain Knee Left 5 Component Femoral Cocr [id number] - [id number] Implanted:Qty: 1 on 09/16/2022 by Ismael Pizano MD at [facility] [employer] [id number] 05/28/2031 [id number] / / [id number] [employer] Journey Od32 Mm Resurfacing Round Standard Component Patellar [id number] - [id number] Implanted:Qty: 1 on 09/16/2022 by Ismael Pizano MD at [facility] Left: Knee [employer] [id number] 12/14/2031 [id number] / / [id number] [employer] Simplex P Radiopaque Full Dose Cement Bone Sterile 6191-1-010 - [id number] Implanted:Qty: 2 on 09/16/2022 by Ismael Pizano MD at [facility] Left: Knee [employer] 03/05/2025 [id number] / / [employer]/Or tho Insert Tibial Knee Fixed Lm Articular Journey Ii 10mm Size 3-4 Xlpe [id number] - [id number] Implanted:Qty: 1 on 09/16/2022 by Ismael Pizano MD at [facility] [employer] [id number] / / Insurance [employer] [facility] MEDICARE ADVANTAGE [facility] MEDIC[facility] Address: [address] [address] [place] [address] AET MEDICARE AET MEDICARE AET MEDICARE Advance Directives For more information, please contact: [phone] Documents on File Type Date Recorded Patient Carpenter Cradle And Dolly Expl anation Power of Steel Pourer Helper 09/16/2022 8:01 AM * Full Code (Latest Code Status on File) Date Activated Date Inactivated Comments 09/16/2022 3:43 PM 09/17/2022 6:47 PM Care Teams Ship Joiner Relationship Specialty Start Date End Date Dave Canada MD PCP - General 03/26/20
--- OUTSIDE RECORDS SUMMARY | 2025-06-06 14:11 | XMS_ITS | Encounter Summary ---
Author Organization [facility] Address [address] [place] [address] Care Team Providers Care Extruder Operator Name Role Phone Dave Canada MD Primary Care Provider [phone] Encounter Details Date Type Department Care Team (Latest Contact Info) Description 11/07/2003 Outpatient Historical HIS [facility] Cintron, Vasu Moore MD NO ADDRESS ON FILE SCREENING MAMM-MAILG NEOPL-OTHER (Primary Dx) Social History Tobacco Use Types Packs/Day Years Used Date Smoking Tobacco: Never Assessed Comments Unknown Sex and Gender Information Value Date Recorded Sex Assigned at Not on file Legal Sex Female 3:55 AM BUILDING SERVICE WORKER Gender Identity Not on file Sexual Orientation Not on file documented as of this encounter Plan of Treatment Upcoming Encounters Date Type Department Care Team (Late st Contact Info) Description 10/18/2025 1:30 PM BUILDING SERVICE WORKER Office Visit [facility] Heart and Vascular Electrophysiology - [address] [facility] [address] [address] [facility] [address] [place] [address] [place] [address] [facility] [address] [place] [address] documented as of this encounter Visit Diagnoses Diagnosis Other screening mammogram- Primary documented in this encounter Additional Health Concerns Infection Onset Date Last Indicated Resolved Time COVID-19 Comment:Added from external infection. Tested at [facility] 07/18/2020 04/02/2022 6:13 AM C DT documented as of this encounter Care Teams Extruder Operator Relationship Specialty Start Date End Date Dave Canada MD PCP - General Family Practice 01/08/21 documented as of this encounter
--- OUTSIDE RECORDS SUMMARY | 2025-06-06 14:11 | XMS_ITS | Encounter Summary ---
Author Organization [facility] Address [address] [place] [address] Care Team Providers Care Solution Designer Name Role Phone Dave Canada MD Primary Care Provider [phone] Encounter Details Date Type Department Care Team (Latest Contact Info) Description 11/18/2005 Outpatient Historical HIS [facility] Cintron, Vasu Moore MD NO ADDRESS ON FILE Other Screening Mammogram (Primary Dx) Social History Tobacco Use Types Packs/Day Years Used Date Smoking Tobacco: Never Assessed Comments Unknown Sex and Gender Information Value Date Recorded Sex Assigned at Not on file Legal Sex Female 3:55 AM PHOTOGRAPHER PORTRAIT Gender Identity Not on file Sexual Orientation Not on file documented as of this encounter Plan of Treatment Upcoming Encounters Date Type Department Care Team (Late st Contact Info) Description 10/18/2025 1:30 PM PHOTOGRAPHER PORTRAIT Office Visit [facility] Heart and Vascular Electrophysiology - [address] [facility] [address] [address] [facility] [address] [place] [address] [place] [address] [facility] [address] [place] [address] documented as of this encounter Visit Diagnoses Diagnosis Other screening mammogram- Primary documented in this encounter Additional Health Concerns Infection Onset Date Last Indicated Resolved Time COVID-19 Comment:Added from external infection. Tested at [facility] 07/18/2020 04/02/2022 6:13 AM C DT documented as of this encounter Care Teams Solution Designer Relationship Specialty Start Date End Date Dave Canada MD PCP - General Family Practice 01/08/21 documented as of this encounter
--- OUTSIDE RECORDS SUMMARY | 2025-06-06 14:11 | XMS_ITS | Encounter Summary ---
Author Organization [facility] Address [address] [place] [address] Care Team Providers Care Superintendent Nonselling Name Role Phone Dave Canada MD Primary Care Provider [phone] Encounter Details Date Type Department Care Team (Latest Contact Info) Description 10/25/2002 Outpatient Historical HIS [facility] Cintron, Vasu Moore MD NO ADDRESS ON FILE SCREENING MAMM-MAILG NEOPL-OTHER (Primary Dx) Social History Tobacco Use Types Packs/Day Years Used Date Smoking Tobacco: Never Assessed Comments Unknown Sex and Gender Information Value Date Recorded Sex Assigned at Not on file Legal Sex Female 3:55 AM SIDEWALK REPAIRER Gender Identity Not on file Sexual Orientation Not on file documented as of this encounter Plan of Treatment Upcoming Encounters Date Type Department Care Team (Late st Contact Info) Description 10/18/2025 1:30 PM SIDEWALK REPAIRER Office Visit [facility] Heart and Vascular Electrophysiology - [address] [facility] [address] [address] [facility] [address] [place] [address] [place] [address] [facility] [address] [place] [address] documented as of this encounter Visit Diagnoses Diagnosis Other screening mammogram- Primary documented in this encounter Additional Health Concerns Infection Onset Date Last Indicated Resolved Time COVID-19 Comment:Added from external infection. Tested at [facility] 07/18/2020 04/02/2022 6:13 AM C DT documented as of this encounter Care Teams Superintendent Nonselling Relationship Specialty Start Date End Date Dave Canada MD PCP - General Family Practice 01/08/21 documented as of this encounter
--- OUTSIDE RECORDS SUMMARY | 2025-06-06 14:11 | XMS_ITS | Clinical Summary ---
Author Organization [facility] [employer] Address [address] [place] [address] Care Team Providers Care Research Program Coordinator Name Role Phone Dave Canada MD Primary Care Provider [phone] Source Comments [facility] [employer],non-owned Affiliates and Associated Physician Practices is amultiple site organization consisting of ambulatory clinics and hospital sitesin [place], [place], [place] and [place]. This disclosure is being madepursuant to the Care Everywhere program and may not contain all information available regarding this patient. Last updated 18[employer] Allergies Active Allergy Reactions Criticality Noted Date Comments Clindamycin Nausea and/or Vomiting 08/05/2022 Metallic taste and nausea Latex Rash Medium 10/07/2015 Sensitivity to adhesives Morphine Psychiatric Medium 07/19/2009 Oxycodone-Acetaminophe n Nausea and/or Vomiting Low 07/19/2009 Penicillins Urticaria,Rash Medium 10/07/2015 Sulfa Drugs Urticaria,Other,Rash Medium 03/16/2012 Sores in mouth Medications * Be aware that medications may not be up to date on this document. Alwaysverify current medications with the patient. Repatha SureClick 140 MG/ML auto-injector Inject 140 (one hundred forty) mg subcutaneously every 14 days Active meloxicam (Mobic) 15 MG tablet Take 0.5 (one-half) tablet by mouth once daily Active Xarelto 20 MG tablet Take 1 (one) tablet by mouth every morning 4 Active sertraline (Zoloft) 25 MG tablet Take 1 (one) tablet by mouth once daily 4 Active fexofenadine (Harika) 180 MG tablet Take 1 (one) tablet by mouth at bedtime Active valACYclovir (Valtrex) 1 GM tablet as needed 3 Active sotalol (Betapace) 120 MG tablet Take 1 (one) tablet by mouth 2 times daily Active clobetasol (Temovate) 0.05 % ointment Apply to affected area 2 times daily as needed 3 Active ketoconazole (Nizoral) 2 % cream Apply to affected area 2 times daily as needed 3 Active estradiol (Estrace) 0.5 MG tablet Take 1 (one) tablet by mouth once daily 4 Active Docusate Sodium (DSS) 100 MG Take 100 mg by mouth 2 times daily Active Multiple Vitamins-Knott als (Hair/Skin/Danni ls) TABS Take 2 (two) tablets by mouth once daily Active levothyroxine (Synthroid) 100 MCG tablet Take 1 (one) tablet by mouth every morning 4 Active vitamin D3 (Cholecalcifer ol) 125 MCG (5000 UT) capsule Take 1 (one) capsule by mouth once daily Active Active Problems Problem Noted Date Diagnosed Date Lesion of left lower eyelid 08/21/2024 Social History Tobacco Use Types Packs/Day Years Used Date Smoking Tobacco: Never Assessed Comments Unknown Sex and Gender Information Value Date Recorded Sex Assigned at Not on file 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 Gender Identity Not on file Sexual Orientation Not on file Plan of Treatment Health Maintenance Due Date Last Done Comments BONE DENSITY TESTING 1955 COLOGUARD (AGES 45-75) - COLON CA SCREENING 1955 CT COLONOGRAPHY - COLON CA SCREENING 1955 FIT - COLON CA SCREENING 1955 FLEX SIG - COLON CA SCREENING 1955 LIPID TESTING 1955 HEPATITIS C SCREENING 06/22/1973 DTAP/TDAP/TD VACCINES (1 - Tdap) 1974 PNEUMOCOCCAL VACCINE 50+ (1 of 1 - PCV) 2005 ZOSTER VACCINE (1 of 2) 2005 DEPRESSION SCREENING 09/06/2024 MEDICARE AWV CALENDAR YEAR 2024 MAMMOGRAM 03/18/2025 03/18/2023, 03/06, 03/12/2021 COVID-19 VACCINE ( season) 2025 08/07/2021 INFLUENZA VACCINE (#1) 2025 4, 06/25/2021, 06/06/2020, Additional history exists Respiratory Syncytial Virus (RSV) Vaccine Pt: or over 60 yrs (1 - 1-dose 75+ series) 2030 COLON MONITORING 03/20/2031 03/20/2021 COLONOSCOPY - COLON CA SCREENING 03/20/2031 03/20/2021 Colorectal Cancer Screening 03/20/2031 HEPATITIS B VACCINE Aged Out No longe r eligible based on patient's age to complete this topic HIB VACCINE Aged Out No longer eligi ble based on patient's age to complete this topic HPV VACCINE Aged Out No longer eligi ble based on patient's age to complete this topic MENINGOCOCCAL (Group B) VACCINE SHARED DECISION-MAKING Aged Out No longer eligible based on patient's age to complete this topic MENINGOCOCCAL GROUPS A/C/Y/W VACCINE Aged Out No longer eligible based on patient's age to complete this topic Insurance [employer]ENA MEDICARE ADV * Guarantor: AISHA FLOREZ Account Type Relation to Patient Date of Phone Billing Address Personal/Family 1955 Care Teams Research Program Coordinator Relationship Specialty Start Date End Date Dave Canada MD [address] [place] [phone] PCP - General Family Medicine 08/08/24
--- OUTSIDE RECORDS SUMMARY | 2025-06-06 14:11 | XMS_ITS | Encounter Summary ---
Author Organization [facility] Address [address] [place] [address] Care Team Providers Care Master Control Operator Name Role Phone Dave Canada MD Primary Care Provider [phone] Encounter Details Date Type Department Care Team (Late st Contact Info) Description 03/02/2019 Lab Requisition [facility] Derm[facility] Lab [address] [place] [phone] Ismael Munguia MD [address] [place] [address] Social History Tobacco Use Types Packs/Day Years Used Date Smoking Tobacco: Never Assessed Comments Unknown Sex and Gender Information Value Date Recorded Sex Assigned at Not on file 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 Gender Identity Not on file Sexual Orientation Not on file documented as of this encounter Plan of Treatment Not on file documented as of this encounter Procedures Procedure Name Priority Date/Time Associated Diagnosis Comments DERMATOPATHOLOGY Routine 03/01/2019 12:0 0 AM CDT documented in this encounter Results * DERMATOPATHOLOGY (03/01/2019 12:00 AM CDT) Case Report Dermatopathology Report Case: [id number] Authorizing Provider: Ismael Munguia MD Collected: 03/01/2019 12:00 AM Pathologist: Gladis Rene MD Received: 03/02/2019 01:14 PM Specimen: Skin, right calf 9 2:06 PM CDT DERMATOPATHOLOGY LABORATORY Final Diagnosis Specimen A. SKIN, right calf: HEMANGIOMA (D18.01) 9 2:06 PM CDT DERMATOPATHOLOGY LABORATORY at 1406 CDT Clinical History R/O ISK, BCC, SCC, HAK. 9 2:06 PM CDT DERMATOPATHOLOGY LABORATORY Gross Description Specimen A: Received is one formalin filled container labeled with the patient's name and designated right calf. The specimen consists of a shave biopsy measuring [id number]. Jar 0. 9 2:06 PM CDT DERMATOPATHOLOGY LABORATORY Microscopic Description Specimen A. SKIN, right calf: In the dermis, there are dilated vascular spaces surrounded by widely spaced endothelial cells. 9 2:06 PM CDT DERMATOPATHOLOGY LABORATORY Disclaimer An external and internal positive and negative controls are appropriate for the histochemical, immunohistochemical and immunofluorescence stain(s) in this case (if any), except where stated explicitly. The performance characteristics of the stain(s) cited in this report were developed and its performance characteristic determined by the Dermatopathology Laboratory at [facility], directed by Dr. Kerry Rene. These tests need not be, and therefore are not, approved by the [place] Food and Drug Administration. The tests are used for clinical purposes. Billing Codes Specimen Charges Stain Charges 81233 1 9 2:06 PM CDT DERMATOPATHOLOGY LABORATORY Embedded Images 9 2:06 PM CDT DERMATOPATHOLOGY LABORATORY Pathology/Cytolog y TISSUE SPECIMEN FROM SKIN / Unknown 03/01/2019 03/02/2019 1:14 PM CDT Ismael Munguia MD LAB - PATHOLOGY/CYTOLOGY ORD ERABLES Final Result DERMATOPATHOLOGY LABORATORY [facility] - Department of Dermatology [address] [place] [address], [facility] [phone] documented in this encounter Visit Diagnoses Not on filedocumented in this encounter Care Teams Master Control Operator Relationship Specialty Start Date End Date Dave Canada MD [address] [place] [address] PCP - General Family Medicine 08/08/24 documented as of this encounter
--- OUTSIDE RECORDS SUMMARY | 2025-06-06 14:11 | XMS_ITS | Encounter Summary ---
Author Organization [facility] Address [address] [place] [address] Care Team Providers Care County Supervisor Name Role Phone Dave Canada MD Primary Care Provider [phone] Encounter Details Date Type Department Care Team (Latest Contact Info) Description 12/12/2008 Outpatient Historical HIS [facility] Cintron, Caitlyn Moore MD NO ADDRESS ON FILE Other Screening Mammogram Social History Tobacco Use Types Packs/Day Years Used Date Smoking Tobacco: Never Assessed Comments Unknown Sex and Gender Information Value Date Recorded Sex Assigned at Not on file Legal Sex Female 3:55 AM RESIDENT CARE ASSOCIATE Gender Identity Not on file Sexual Orientation Not on file documented as of this encounter Plan of Treatment Upcoming Encounters Date Type Department Care Team (Late st Contact Info) Description 10/18/2025 1:30 PM RESIDENT CARE ASSOCIATE Office Visit [facility] Heart and Vascular Electrophysiology - [address] [address] [address] [facility] [address] [place] [address] [place] [address] [address] [place] [address] documented as of this encounter Procedures Procedure Name Priority Date/Time Associated Diagnosis Comments MAMMO SCREEN BILAT W OR WO CAD Routine 12/12/2008 9:02 AM CDT documented in this encounter Results * MAMMO DIGITAL SCREEN BILAT (12/12/2008 9:02 AM CDT) Anatomical Region Laterality Modality Breast Bilateral Other 12/12/2008 9:02 AM CDT Narrative 12/13/2008 2:20 PM CDT [place] [address] [address] [place], [place] [address] Admit Date: 12/12/2008 AISHA PERRY Sex: F Admit Prov: CAITLYN CINTRON Date: 1955 Primary Care Prov: CMRN: [id number] [facility] [address] [place] [address] IMAGING SERVICES Ordering Prov: CAITLYN CINTRON Accession Number: [id number] Interpretation BILATERAL FULL FIELD DIGITAL SCREENING MAMMOGRAM WITH CAD. History: Routine Screening. Technique: Full field digital craniocaudal and mediolateral oblique projections of both breasts were obtained. Computer aided diagnosis was performed. Comparison: 12/2007, 11/2006, 11/2005 Breast Parenchymal Composition: Scattered fibroglandular densities. Findings: No suspicious mass, suspicious microcalcifications, or architectural distortion in either breast is identified. Since the prior study, there has been no significant interval change. The computer aided diagnosis detects no significant abnormality. Overall Assessment: BI-RADS category 1: Negative. Recommendation: Annual mammography is recommended. Assessment BIRADS: 1-Negative Recommendation: Normal interval follow-up Dictated by: ANDREIA ABARCA Electronically signed by: ANDREIA ABARCA 12/13/2008 14:19 Transcribed: 12/12/2008 21:35 AMK Procedure Note Andreia Abarca - 12/13/2008 [place] [address] [address] [place], [place] [address] Admit Date: 12/12/2008 AISHA PERRY Sex: F Admit Prov: CAITLYN CINTRON Date:1955 Primary Care Prov: CMRN: [id number] Room: MARCUSSujit N: [id number] IMAGING SERVICES Ordering Prov: CAITLYN CINTRNO Interpretation BILATERAL FULL FIELD DIGITAL SCREENING MAMMOGRAM WITH CAD. History: Routine Screening. Technique: Full field digital craniocaudal and mediolateral oblique projections of both breasts were obtained. Computer aided diagnosiswas performed. Comparison: 12/2007, 11/2006, 11/2005 Breast Parenchymal Composition: Scattered fibroglandular densities. Findings: No suspicious mass, suspicious microcalcifications, or architectural distortion in either breast is identified. Since theprior study, there has been no significant interval change. The computeraided diagnosis detects no significant abnormality. Overall Assessment: BI-RADS category 1: Negative. Recommendation: Annual mammography is recommended. Assessment BIRADS: 1-Negative Recommendation: Normal interval follow-up Dictated by: ANDREIA ABARCA Electronically signed by: ANDREIA ABARCA 12/13/2008 14:19 Transcribed: 12/12/2008 21:35 AMK us Caitlyn Cintron MD MAMMO ORDERABLES Final Result documented in this encounter Visit Diagnoses Diagnosis Other screening mammogram documented in this encounter Additional Health Concerns Infection Onset Date Last Indicated Resolved Time COVID-19 Comment:Added from external infection. Tested at [facility] 07/18/2020 04/02/2022 6:13 AM C DT documented as of this encounter Care Teams County Supervisor Relationship Specialty Start Date End Date Dave Canada MD PCP - General Family Practice 01/08/21 documented as of this encounter
--- OUTSIDE RECORDS SUMMARY | 2025-06-06 14:11 | XMS_ITS | Encounter Summary ---
Author Organization [facility] Address [address] [place] [address] Care Team Providers Care Upkeep Worker Name Role Phone Dave Canada MD Primary Care Provider [phone] Encounter Details Date Type Department Care Team (Late st Contact Info) Description 09/11/2020 Lab Requisition [facility] DermPath Lab [address] [place] [phone] Ismael Munguia MD [address] [place] [address] Social History Tobacco Use Types Packs/Day Years Used Date Smoking Tobacco: Never Assessed Comments Unknown Sex and Gender Information Value Date Recorded Sex Assigned at Not on file 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 Gender Identity Not on file Sexual Orientation Not on file documented as of this encounter Plan of Treatment Not on file documented as of this encounter Procedures Procedure Name Priority Date/Time Associated Diagnosis Comments DERMATOPATHOLOGY Routine 09/10/2020 12:0 0 AM LATHE SPOTTER documented in this encounter Results * DERMATOPATHOLOGY (09/10/2020 12:00 AM LATHE SPOTTER) Case Report Dermatopathology Report Case: [id number] Authorizing Provider: Ismael Munguia MD Collected: 09/10/2020 12:00 AM Ordering Location: [facility] DermPath Lab Received: 09/11/2020 10:36 AM Pathologist: Odalys Mcmahon MD Specimen: Skin, left zygoma 12:50 PM LATHE SPOTTER DERMATOPATHOLOGY LABORATORY Final Diagnosis Specimen A. SKIN, left zygoma: HYPERPLASTIC (HYPERTROPHIC) ACTINIC KERATOSIS, LICHENOID; EXTENDING TO THE BASE OF THE SPECIMEN (L57.0) (see microscopic description and comment) 12:50 PM [facility] DERMATOPATHOLOGY LABORATORY at [address] LATHE SPOTTER Clinical History R/O HAK, Del Castillo's, SCC. 12:50 PM [facility] DERMATOPATHOLOGY LABORATORY Gross Description Specimen A: Received is one formalin filled container labeled with the patient's name and designated left zygoma. The specimen consists of a shave biopsy (3 pieces) measuring [id number], 8t1u2oo & 5q6q5ne. Jar 0. 12:50 PM [facility] DERMATOPATHOLOGY LABORATORY Microscopic Description Specimen A. SKIN, left zygoma: There is hyperkeratosis alternating with parakeratosis. There is epidermal hyperplasia with disorderly maturation of keratinocytes with nuclear pleomorphism confined to the lower half of the epidermis. The dermis shows a band-like, chronic inflammatory infiltrate with occasional apoptotic keratinocytes and some basal vacuolar alteration. This process extends to the base of the specimen. COMMENT: A squamous cell carcinoma cannot be ruled out. 1 12:50 PM [facility] DERMATOPATHOLOGY LABORATORY Disclaimer An external and internal positive and negative controls are appropriate for the histochemical, immunohistochemical and immunofluorescence stain(s) in this case (if any), except where stated explicitly. The performance characteristics of the stain(s) cited in this report were developed and its performance characteristic determined by the Dermatopathology Laboratory at [facility], directed by Dr. Kerry Rene. These tests need not be, and therefore are not, approved by the [place] Food and Drug Administration. The tests are used for clinical purposes. Billing Codes Specimen Charges Stain Charges 69849 1 1 12:50 PM [facility] DERMATOPATHOLOGY LABORATORY Embedded Images 12:50 PM [facility] DERMATOPATHOLOGY LABORATORY Pathology/Cytolog y TISSUE SPECIMEN FROM SKIN / Unknown 09/10/2020 09/11/2020 10:36 AM [facility] Ismael Munguia MD LAB - PATHOLOGY/CYTOLOGY ORD ERABLES Final Result DERMATOPATHOLOGY LABORATORY [facility] - Department of Dermatology [facility] Medicine [address] [phone] documented in this encounter Visit Diagnoses Not on filedocumented in this encounter Care Teams Upkeep Worker Relationship Specialty Start Date End Date Dave Canada MD [address] [place] [phone] PCP - General Family Medicine 08/08/24 documented as of this encounter
--- OUTSIDE RECORDS SUMMARY | 2025-06-06 14:11 | XMS_ITS | Encounter Summary ---
Author Organization [facility] Address 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 Gender Identity Not on file Sexual Orientation Not on file documented as of this encounter Plan of Treatment Upcoming Encounters Date Type Department Care Team (Late st Contact Info) Description 10/18/2025 1:30 PM RESEARCH EPIDEMIOLOGIST Office Visit [facility] Heart and Vascular Electrophysiology - [address] [facility] [address] [address] [facility] [address] [place] [address] [place] [address] [address] [facility] [address] [place] [address] documented as of this encounter Procedures Procedure Name Priority Date/Time Associated Diagnosis Comments MAMMO SCREEN BILAT W OR WO CAD Routine 12/12/2007 11:20 AM CDT documented in this encounter Results * MAMMO DIGITAL SCREEN BILAT (12/12/2007 11:20 AM CDT) Anatomical Region Laterality Modality Breast Bilateral Other 12/12/2007 11:2 0 AM CDT Narrative 12/12/2007 2:48 PM CDT [address] [address] Admit Date: 12/12/2007 AISHA PERRY Sex: F Admit Prov: CAITLYN CINTRON Date: 1955 Primary Care Prov: CMRN: [id number] Room: [facility]: [address] [place] [address] IMAGING SERVICES Ordering Prov: CAITLYN CINTRON Accession Number: [id number] Interpretation DIGITAL SCREENING MAMMOGRAM WITH COMPUTER ASSISTED DIAGNOSIS FINDINGS The breasts were imaged with digital mammographic technique. The parenchyma is dense bilaterally. This lowers the sensitivity of mammography in detecting disease. There is no mass, malignant calcification, lymphadenopathy or other sign of malignancy. There has been no significant change since 11/10. The CAD system does not highlight any suspicious areas. CONCLUSION No mammographic evidence of malignancy. Assessment BIRADS: 1-Negative Recommendation: Normal interval follow-up Dictated by: GATO JIMENEZ Electronically signed by: GATO JIMENEZ 12/12/2007 14:48 Transcribed: 12/12/2007 14:48 [facility] Procedure Note Gato Jimenez MD - 12/12/[address] [address] Admit Date: 12/12/2007 AISHA PERRY Sex: F Admit Prov: CAITLYN CINTRON Date:1955 [id number] Room: MARCUSSujit N: [id number] IMAGING SERVICES Ordering Prov: CAITLYN CINTRON Interpretation DIGITAL SCREENING MAMMOGRAM WITH COMPUTER ASSISTED DIAGNOSIS FINDINGS The breasts were imaged with digital mammographic technique. Theparenchyma is dense bilaterally. This lowers the sensitivity of mammographyin detecting disease. There is no mass, malignant calcification, lymphadenopathy or other sign of malignancy. There has been nosignificant change since 11/10. The CAD system does not highlight any suspicious areas. CONCLUSION No mammographic evidence of malignancy. Assessment BIRADS: 1-Negative Recommendation: Normal interval follow-up Dictated by: GATO JIMENEZ Electronically signed by: GATO JIMENEZ 12/12/2007 14:48 Transcribed: 12/12/2007 14:48 [facility] us Caitlyn Cintron MD MAMMO ORDERABLES Final Result documented in this encounter Visit Diagnoses Diagnosis Other screening mammogram documented in this encounter Additional Health Concerns Infection Onset Date Last Indicated Resolved Time COVID-19 Comment:Added from external infection. Tested at [facility] 07/18/2020 04/02/2022 6:13 AM C DT documented as of this encounter Care Teams Wax Cutter Relationship Specialty Start Date End Date Dave Canada MD PCP - General Family Practice 01/08/21 documented as of this encounter
--- OUTSIDE RECORDS SUMMARY | 2025-06-06 14:11 | XMS_ITS | Encounter Summary ---
Author Organization [facility] Address [address] [facility] [place] [address] Care Team Providers Care Wide Area Network Systems Administrator Name Role Phone Dave Canada MD Primary Care Provider [phone] Encounter Details Date Type Department Care Team (Late st Contact Info) Description 06/01/2019 Lab Requisition [facility] [address] [place] [phone] Ismael Munguia MD [address] [place] [address] Social History Tobacco Use Types Packs/Day Years Used Date Smoking Tobacco: Never Assessed Comments Unknown Sex and Gender Information Value Date Recorded Sex Assigned at Not on file 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 Gender Identity Not on file Sexual Orientation Not on file documented as of this encounter Plan of Treatment Not on file documented as of this encounter Procedures Procedure Name Priority Date/Time Associated Diagnosis Comments DERMATOPATHOLOGY Routine 05/31/2019 12:0 0 AM CDT documented in this encounter Results * DERMATOPATHOLOGY (05/31/2019 12:00 AM CDT) Case Report Dermatopathology Report Case: [id number] Authorizing Provider: Ismael Munguia MD Collected: 05/31/2019 12:00 AM Ordering Location: [facility] Received: 06/01/2019 01:51 PM Pathologist: Gladis Rene MD Specimen: Skin, left sternum 12:21 PM CDT DERMATOPATHOLOGY LABORATORY Final Diagnosis Specimen A. SKIN, left sternum: EPIDERMOID CYST WITH SCAR (L72.0) 12:21 PM CDT DERMATOPATHOLOGY LABORATORY at 1221 CDT Clinical History R/O EIC. 12:21 PM CDT DERMATOPATHOLOGY LABORATORY Gross Description Specimen A: Received is one formalin filled container labeled with the patient's name and designated left sternum. The specimen consists of a [id number] excision, bisected. Jar 0. 12:21 PM CDT DERMATOPATHOLOGY LABORATORY Microscopic Description Specimen A. SKIN, left sternum: Within the dermis, there is a space lined by epithelium that resembles normal epidermis and the infundibular portion of the hair follicle. There are fibroblasts and collagen bundles oriented parallel to one another. 12:21 PM CDT DERMATOPATHOLOGY LABORATORY Disclaimer An external and internal positive and negative controls are appropriate for the histochemical, immunohistochemical and immunofluorescence stain(s) in this case (if any), except where stated explicitly. The performance characteristics of the stain(s) cited in this report were developed and its performance characteristic determined by the Dermatopathology Laboratory at [facility], directed by Dr. Kerry Rene. These tests need not be, and therefore are not, approved by the [place] Food and Drug Administration. The tests are used for clinical purposes. Billing Codes Specimen Charges Stain Charges 11692 1 12:21 PM CDT DERMATOPATHOLOGY LABORATORY Embedded Images 12:21 PM CDT DERMATOPATHOLOGY LABORATORY Pathology/Cytolog y TISSUE SPECIMEN FROM SKIN / Unknown 05/31/2019 06/01/2019 1:51 PM CDT us Ismael Munguia MD LAB - PATHOLOGY/CYTOLOGY ORD ERABLES Final Result DERMATOPATHOLOGY LABORATORY [facility] - Department of Dermatology [address] [facility], [address] [place] [address], [facility] [phone] documented in this encounter Visit Diagnoses Not on filedocumented in this encounter Care Teams Wide Area Network Systems Administrator Relationship Specialty Start Date End Date Dave Canada MD [address] [place] [phone] PCP - General Family Medicine 08/08/24 documented as of this encounter
--- OUTSIDE RECORDS SUMMARY | 2025-06-06 14:11 | XMS_ITS | Encounter Summary ---
Author Organization [facility] Address [address] [place] [address] Care Team Providers Care Client Renewal Specialist Name Role Phone Dave Canada MD Primary Care Provider [phone] Encounter Details Date Type Department Care Team (Latest Contact Info) Description 10/15/2004 Outpatient Historical [facility] CALEB Cintron, Vasu Moore MD NO ADDRESS ON FILE SCREENING MAMM-MAILG NEOPL-OTHER (Primary Dx) Social History Tobacco Use Types Packs/Day Years Used Date Smoking Tobacco: Never Assessed Comments Unknown Sex and Gender Information Value Date Recorded Sex Assigned at Not on file Legal Sex Female 3:55 AM 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 Gender Identity Not on file Sexual Orientation Not on file documented as of this encounter Plan of Treatment Upcoming Encounters Date Type Department Care Team (Late st Contact Info) Description 10/18/2025 1:30 PM MATERIAL HANDLING TECHNICIAN Office Visit [facility] Heart and Vascular Electrophysiology - [address] [facility] [address] [address] [facility] [address] [place] [address] [place] [address] [facility] [address] [place] [address] documented as of this encounter Visit Diagnoses Diagnosis Other screening mammogram- Primary documented in this encounter Additional Health Concerns Infection Onset Date Last Indicated Resolved Time COVID-19 Comment:Added from external infection. Tested at [facility] 07/18/2020 04/02/2022 6:13 AM C DT documented as of this encounter Care Teams Client Renewal Specialist Relationship Specialty Start Date End Date Dave Canada MD PCP - General Family Practice 01/08/21 documented as of this encounter
--- OUTSIDE RECORDS SUMMARY | 2025-06-06 14:11 | XMS_ITS | Encounter Summary ---
Author Organization [facility] Address [address] [place] [address] Care Team Providers Care Health And Safety Trainer Name Role Phone Dave Canada MD Primary Care Provider [phone] Encounter Details Date Type Department Care Team (Latest Contact Info) Description 08/04/1999 Outpatient Historical [facility] Vasu Cintron MD NO ADDRESS ON FILE Other specified examination (Primary Dx) Social History Tobacco Use Types Packs/Day Years Used Date Smoking Tobacco: Never Assessed Comments Unknown Sex and Gender Information Value Date Recorded Sex Assigned at Not on file Legal Sex Female 3:55 AM EXTENDER Gender Identity Not on file Sexual Orientation Not on file documented as of this encounter Plan of Treatment Upcoming Encounters Date Type Department Care Team (Late st Contact Info) Description 10/18/2025 1:30 PM EXTENDER Office Visit [facility] Heart and Vascular Electrophysiology - [address] [facility] [address] [address] [facility] [address] [place] [phone] [place] [address] [facility] [address] [place] [address] documented as of this encounter Visit Diagnoses Diagnosis Other specified examination- Primary documented in this encounter Additional Health Concerns Infection Onset Date Last Indicated Resolved Time COVID-19 Comment:Added from external infection. Tested at [facility] 07/18/2020 04/02/2022 6:13 AM C DT documented as of this encounter Care Teams Health And Safety Trainer Relationship Specialty Start Date End Date Dave Canada MD PCP - General Family Practice 01/08/21 documented as of this encounter
--- OUTSIDE RECORDS SUMMARY | 2025-06-06 14:11 | XMS_ITS | Encounter Summary ---
Author Organization [facility] Address [address] [facility] [place] [address] Care Team Providers Care Business Info Consultant Name Role Phone Dave Canada MD Primary Care Provider [phone] Encounter Details Date Type Department Care Team (Late st Contact Info) Description 12/20/2018 Lab Requisition [facility] Care DermPath Lab [address] [place] [phone] Ismael Munguia MD [address] [place] [address] Social History Tobacco Use Types Packs/Day Years Used Date Smoking Tobacco: Never Assessed Comments Unknown Sex and Gender Information Value Date Recorded Sex Assigned at Not on file Legal Sex Female 5:52 PM RIVET TOSSER Gender Identity Not on file Sexual Orientation Not on file documented as of this encounter Plan of Treatment Not on file documented as of this encounter Procedures Procedure Name Priority Date/Time Associated Diagnosis Comments DERMATOPATHOLOGY Routine 12/19/2018 12:0 0 AM CDT documented in this encounter Results * DERMATOPATHOLOGY (12/19/2018 12:00 AM CDT) Case Report Dermatopathology Report Case: [id number] Authorizing Provider: Ismael Munguia MD Collected: 12/19/2018 12:00 AM Pathologist: Sheyla Taylor MD Received: 12/20/2018 12:11 PM Specimens: A) - Skin, right index finger B) - Skin, right ala 1:20 PM CDT DERMATOPATHOLOGY LABORATORY Final Diagnosis Specimen A. 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 SKIN, right ala: BASAL CELL CARCINOMA (C44.311) (see microscopic description and comment) 1:20 PM T DERMATOPATHOLOGY LABORATORY at 1320 CDT Clinical History A: R/O pyogenic granuloma. B: R/O BCC, SCC. 1:20 PM CDT DERMATOPATHOLOGY LABORATORY Gross Description Specimen A: Received is one formalin filled container labeled with the patient's name and designated right index finger. The specimen consists of a shave biopsy measuring [id number]. Jar 0. Specimen B: Received is one formalin filled container labeled with the patient's name and designated right ala. The specimen consists of a shave biopsy measuring [id number]. Jar 0. 1:20 PM CDT DERMATOPATHOLOGY LABORATORY Microscopic Description Specimen A. SKIN, right index finger: There are dilated vascular spaces surrounded by thin, widely spaced endothelial cells. The lesion is eroded. Additional deeper sections were obtained and reviewed. Specimen B. SKIN, right ala: The specimen consists of aggregates of basaloid cells, located within the superficial dermis, with high nuclear to cytoplasmic ratio and peripheral palisading. COMMENT: The small size of the specimen limits subtyping of the lesion. 1:20 PM CDT DERMATOPATHOLOGY LABORATORY Disclaimer An external and internal positive and negative controls are appropriate for the histochemical, immunohistochemical and immunofluorescence stain(s) in this case (if any), except where stated explicitly. The performance characteristics of the stain(s) cited in this report were developed and its performance characteristic determined by the Dermatopathology Laboratory at [facility], directed by Dr. Kerry Rene. These tests need not be, and therefore are not, approved by the [place] Food and Drug Administration. The tests are used for clinical purposes. Billing Codes Specimen Charges Stain Charges 83066 38001 1 1 1:20 PM CDT DERMATOPATHOLOGY LABORATORY Embedded Images 1:20 PM CDT DERMATOPATHOLOGY LABORATORY Pathology/Cytology TISSUE SPECIMEN FROM SKIN / Unknown 12/19/2018 12/20/2018 12:11 PM CDT Miscellaneous samples (specimen) TISSUE SPECIMEN FROM SKIN / Unknown 12/19/2018 12/20/2018 12:11 PM CDT Ismael Munguia MD LAB - PATHOLOGY/CYTOLOGY ORD ERABLES Final Result DERMATOPATHOLOGY LABORATORY [facility] - Department of Dermatology [address] [place] [address], 5th Floor Lab [address] [phone] documented in this encounter Visit Diagnoses Not on filedocumented in this encounter Care Teams Business Info Consultant Relationship Specialty Start Date End Date Dave Canada MD [address] [place] [address] PCP - General Family Medicine 08/08/24 documented as of this encounter
--- OUTSIDE RECORDS SUMMARY | 2025-06-06 14:11 | XMS_ITS | Clinical Summary ---
Author Organization [facility] Address [address] [place] [address] Phone Care Team Providers Care Kitchen Designer Name Role Phone Dave Canada MD Primary Care Provider [phone] Allergies Active Allergy Reactions Criticality Noted Date Comments Morphine Hallucination Low 07/19/2009 Oxycodone-Acetaminophen Nausea and Vomiting Low Penicillins Unknown 02/14/2019 Sulfamethoxazole-Trimeth oprim Other (See Comments) 07/19/2009 Sores in mouth Medications fexofenadine (ALLYSON) 180 mg tablet Take 180 mg by mouth daily at bedtime. Active docusate sodium (COLACE) 100 mg capsule Take 100 mg by mouth daily. Active multivitamin (DAILY-KEVON) tablet Take 1 Tab by mouth daily. Active levothyroxine 100 mcg tablet Take 100 mcg by mouth daily in the morning. Active cholecalciferol, Vitamin D3, 125 mcg (5,000 unit) Capsule Take 5,000 Units by mouth daily. Active valACYclovir (VALTREX) 1 gram tablet 09/09/19 23 Active estradioL (ESTRACE) 1 mg tablet Take 1 mg by mouth daily. 10/30/19 23 Active sertraline (ZOLOFT) 50 mg tablet Take 25 mg by mouth daily. Active cpap medical office specialist 1 Each by See Admin Instructions route see administration instructions. Active evolocumab (Repatha SureClick) 140 mg/mL Pen Injector INJECT THE CONTENTS OF 1 PEN UNDER THE SKIN EVERY 2 WEEKS 6 mL 3 06/05/20 24 Active rivaroxaban (Xarelto) 20 mg TabletIndication s:Paroxysmal atrial fibrillation (CMS/HCC) TAKE 1 TABLET BY MOUTH EVERY DAY DEGREASING SOLUTION RECLAIMER 90 Tablet 1 11/02/19 25 Active sotaloL (BETAPACE) 120 mg TabletIndication s:Paroxysmal atrial fibrillation (CMS/HCC),Atypic al atrial flutter (CMS/HCC) TAKE 1 TABLET BY MOUTH 2 TIMES DAILY. 180 Tablet 1 03/07/20 25 Active Active Problems Problem Noted Date Diagnosed Date longterm (current) use of anticoagulants 2019 Atrial fibrillation 03/19/2015 Encounters Date Type Department Care Team Description 06/05/2025 Telephone [facility] Heart and Vascular Electrophysiology - [id number] [place] [address] [facility] [address] [place] [address] Kris Quiros MD Irregular Heart Beat 05/22/2025 External Device Data STL ABSTRACTION Provider, Abstract 05/15/2025 External Device Data STL ABSTRACTION Provider, Abstract 04/11/2025 External Device Data STL ABSTRACTION Provider, Abstract 04/10/2025 External Device Data STL ABSTRACTION Provider, Abstract 03/21/2025 External Device Data STL ABSTRACTION Provider, Abstract 03/21/2025 External Device Data STL ABSTRACTION Provider, Abstract 03/20/2025 External Device Data STL ABSTRACTION Provider, Abstract 03/15/2025 3:30 PM CDT Office Visit [facility] Heart and Vascular - [address] [facility] [address] [address] [facility] [address] [place] [address] Kitty Dominguez, PHYLLIS Encounter for long-term (current) use of medications (Primary Dx); Paroxysmal atrial fibrillation (CMS/HCC); 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; S/P ablation of atrial fibrillation 03/07/2025 Refill [facility] Heart and Vascular - [address] [facility] [address] [address] [facility] [address] [place] [address] Kris Quiros MD Paroxysmal atrial fibrillation (CMS/HCC); Atypical atrial flutter (CMS/HCC) from Last 3 Months Immunizations Immunization Administration Dates Next Due Influenza Seasonal Unspecified Formulation IM ,05/07/2009 PNEUMOVAX (PPSV23) pneumococ jenelle polysaccharide 23-valent Vaccine 01/02/2017 Family History Medical History Relation Name Comments Kidney Cancer Brother Heart Attack Father Lymphoma Mother Relation Name Status Comments Brother Alive Father Mother Social History Tobacco Use Types Packs/Day Years Used Date Smoking Tobacco: Never Smokeless Tobacco: Never Tobacco Cessation:Counseling Given: Not Answered Alcohol Use Standard Drinks/Week Comments Yes 0 (1 standard drink = 0.6 oz pur e alcohol) occ. 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 CLERK Gender Identity Not on file Sexual Orientation Not on file Last Filed Vital Signs Vital Sign Reading Time Taken Comments Blood Pressure 130/80 03/15/2025 3:15 PM CDT Pulse 66 03/15/2025 3:15 PM CDT Temperature 36.4 C (97.6 F) 04/02/2022 7:19 AM CDT Respiratory Rate 11 04/02/2022 7:19 AM CDT Oxygen Saturation 98% 04/02/2022 7:19 AM CDT Inhaled Oxygen Concentration - - Weight 117 kg (258 lb) 03/15/2025 3:15 PM CDT Height 177.8 cm (5' 10) 03/15/2025 3:15 PM CDT Body Mass Index 37.02 03/15/2025 3:15 PM CDT Plan of Treatment Upcoming Encounters Date Type Department Care Team (Late st Contact Info) Description 10/18/2025 1:30 PM AIRCRAFT TIME CLERK [facility] Visit [facility] Heart and Vascular Electrophysiology - [address] [facility] [address] [address] [facility] [address] [place] [phone] [place] [address] [facility] [address] [place] [phone] Health Maintenance Due Date Last Done Comments Pre-Diabetes and Diabetes Screening 1955 FIT-DNA Q 3 years 2000 FIT/FOBT Q 1 year 2000 Flex Sig/CT Colonography Q 5 years 2000 BREAST CANCER SCREENING 01/22/2012 01/22/20 11, 12/18/2009, 12/12/2008, Additional history exists OSTEOPOROSIS SCREENING 2020 [place] ([place]) Preventative Visit/Annual Wellness Visit 09/06/2024 INFLUENZA VACCINE (#1) 2025 4, 05/26/2023, 06/29/2022, Additional history exists COVID-19 Vaccine (2 - 2024-2 6 season) 2025 08/07/2021 DTAP/TDAP/TD VACCINES (2 - T d or Tdap) 10/20/2029 10/20/2019 RSV VACCINE (60+ or ) (1 - 1-dose 75+ series) 2030 COLORECTAL SCREENING 03/20/2031 03/20/2021 Colorectal Cancer Screening 03/20/2031 PNEUMOCOCCAL VACCINE 50+ YEARS Completed 0 04/23/2017, 01/02/2017, 04/20/2016 ZOSTER VACCINE Completed 09/04/2022, 06/29/2022 Procedures Procedure Name Priority Date/Time Associated Diagnosis Comments HI ECG ROUTINE ECG W/LEAST 12 LDS W/I&R Routine 03/15/2025 3:30 PM CDT Encounter for long-term (current) use of medications Paroxysmal atrial fibrillation (CMS/HCC) longterm (current) use of anticoagulants S/P ablation of atrial fibrillation MAMMO SCREEN BILAT W OR WO CAD Routine 01/21/2011 9:34 AM CDT Other screening mammogram from Last 3 Months or Most Recently Relevant to Health Maintenance Results * HI ECG ROUTINE ECG W/LEAST 12 LDS W/I&R (03/15/2025 3:30 PM CDT) Luciana Castillo - 03/15/2025 3:30 PM CDT Sondra Farley 03/26/2025 4:21 PM EKG Date/Time: 03/15/2025 3:30 PM Performed by: Kris Quiros MD Authorized by: Kris Quiros MD Procedure Note Sondra Farley - 03/26/2025 4:21 PM CDT EKG Date/Time: 03/15/2025 3:30 PM Performed by: Kris Quiros MD Authorized by: Kris Quiros MD us Kris Quiros MD ECG ORDERABLES Final Result * MAMMO DIGITAL SCREEN BILAT (01/21/2011 9:34 AM CDT) Anatomical Region Laterality Modality Breast Bilateral Mammography Narrative 01/23/2011 11:23 AM CDT DIGITAL SCREENING MAMMOGRAM WITH COMPUTER-ASSISTED DIAGNOSIS DATE OF EXAM: 01/21/11 HISTORY: Annual screening study. FINDINGS: The breasts were imaged with digital mammographic technique. There are scattered fibroglandular densities. No significant mass, malignant calcification or architectural distortion is noted. The CAD system does not highlight any suspicious areas. SUMMARY: No mammographic evidence of malignancy. There has been no significant change from prior study of 12/18/2009 and 12/12/2008. RECOMMENDATIONS: Bilateral yearly screening mammogram is recommended. BIRADS 1 - Negative Procedure Note Torie Lord MD - 01/23/2011 DIGITAL SCREENING MAMMOGRAM WITH COMPUTER-ASSISTED DIAGNOSIS DATE OF EXAM: 01/21/11 HISTORY: Annual screening study. FINDINGS: The breasts were imaged with digital mammographic technique.There are scattered fibroglandular densities. No significant mass,malignant calcification or architectural distortion is noted. The CAD system does not highlight any suspicious areas. SUMMARY: No mammographic evidence of malignancy. There has been no significant change from prior study of 12/18/2009 and12/12/2008. RECOMMENDATIONS: Bilateral yearly screening mammogram is recommended. BIRADS 1 - Negative Vasu Cintron MD MAMMO ORDERABLES Final Result from Last 3 Months or Most Recently Relevant to Health Maintenance Insurance [employer] O [facility] RX [employer] Medicare Part D Advance Directives For more information, please contact: [phone] * Full Code (Latest Code Status on File) Date Activated Date Inactivated Comments 07/22/2009 12:33 PM 07/23/2009 12:28 PM * Full Code Date Activated Date Inactivated Comments 07/22/2009 6:17 AM 07/22/2009 12:33 PM Care Teams Kitchen Designer Relationship Specialty Start Date End Date Dave Canada MD PCP - General Family Practice 01/08/21
--- OUTSIDE RECORDS SUMMARY | 2025-06-06 14:11 | XMS_ITS | Encounter Summary ---
Author Organization [facility] Address [address] [place] [address] Care Team Providers Care Receiving Dock Checker Name Role Phone Dave Canada MD Primary Care Provider [phone] Reason for Visit * Reason Onset Date Comments Irregular Heart Beat 06/05/2025 Encounter Details Date Type Department Care Team (Late st Contact Info) Description 06/05/[address] [facility] Heart and Vascular Electrophysiology - [address] [facility] [address] [address] [facility] [address] [place] [address] [place] [address] [facility] [address] [place] [address] Irregular Heart Beat Social History Tobacco Use Types Packs/Day Years Used Date Smoking Tobacco: Never Smokeless Tobacco: Never Alcohol Use Standard Drinks/Week Comments Yes 0 (1 standard drink = 0.6 oz pur e alcohol) occ. Comments No Sex and Gender Information Value Date Recorded Sex Assigned at Not on file Legal Sex Female 3:55 AM PERSONAL FINANCIAL COUNSELOR Gender Identity Not on file Sexual Orientation Not on file documented as of this encounter Miscellaneous Notes * Telephone Encounter - Mai Ibarra RN - 06/05/2025 10:32 AM CDT The patient called to let us know she went into afib yesterday around 1600, and it got up to 139 for a bit. The rate started to lower around 1900 then at 0300 this morning, she was back in NSR. He only symptoms at the time were headaches and nausea. She feels fine now and has not missed any of her AC. Will call the office if she has further issues. documented in this encounter Plan of Treatment Upcoming Encounters Date Type Department Care Team (Late st Contact Info) Description 10/18/2025 1:30 PM PERSONAL FINANCIAL COUNSELOR Office Visit [facility] Heart and Vascular Electrophysiology - [address] [facility] [address] [address] [facility] [address] [place] [address] [place] [address] [facility] [address] [place] [address] documented as of this encounter Visit Diagnoses Not on filedocumented in this encounter Care Teams Receiving Dock Checker Relationship Specialty Start Date End Date Dave Canada MD PCP - General Family Practice 01/08/21 documented as of this encounter
--- OUTSIDE RECORDS SUMMARY | 2025-06-06 14:11 | XMS_ITS | Encounter Summary ---
Author Organization [facility] Facility Care Team Providers Care Gasateria Attendant Name Role Phone No, Physician Primary Care Provider [phone] Dave Canada MD Primary Care Provider [phone] Encounter Details Date Type Department Care Team (Latest Contact Info) Description 09/08/2018 Orders Only [facility] Provider, MD Francesco [address] [place] [id number] Social History Tobacco Use Types Packs/Day Years Used Date Smoking Tobacco: Never Assessed Comments Unknown Sex and Gender Information Value Date Recorded Sex Assigned at Not on file Legal Sex Female 9:40 AM CHEMIST ASSISTANT Gender Identity Not on file Sexual Orientation Not on file documented as of this encounter Plan of Treatment Not on file documented as of this encounter Procedures Procedure Name Priority Date/Time Associated Diagnosis Comments PROCEDURE - RESULT 09/08/2018 12 :00 AM CHEMIST ASSISTANT documented in this encounter Results * PROCEDURE - RESULT (09/08/2018 12:00 AM CHEMIST ASSISTANT) Narrative 09/08/2018 12:00 AM CHEMIST ASSISTANT Ordered by an unspecified provider. us Historical Provider Final Res ult documented in this encounter Visit Diagnoses Not on filedocumented in this encounter Additional Health Concerns Infection Onset Date Last Indicated Resolved Time COVID19 Comment:06/202012/27/2020 12/26/2020 08/26/2022 3:[address] documented as of this encounter Care Teams Gasateria Attendant Relationship Specialty Start Date End Date No, Physician PCP - General 08/08/18 03/25/20 Dave Canada MD PCP - General 03/26/20 documented as of this encounter
--- OUTSIDE RECORDS SUMMARY | 2025-06-06 14:11 | XMS_ITS | Encounter Summary ---
Author Organization [facility] Address [address] [place] [address] Care Team Providers Care Upper Extremity Surgeon Name Role Phone Dave Canada MD Primary Care Provider [phone] Encounter Details Date Type Department Care Team (Late st Contact Info) Description 12/07/2018 Lab Requisition [facility] [address] [place] [id number] Ismael Munguia MD [address] [place] [address] Social History Tobacco Use Types Packs/Day Years Used Date Smoking Tobacco: Never Assessed Comments Unknown Sex and Gender Information Value Date Recorded Sex Assigned at Not on file Legal Sex Female 5:52 PM HEALTH EVALUATOR Gender Identity Not on file Sexual Orientation Not on file documented as of this encounter Plan of Treatment Not on file documented as of this encounter Procedures Procedure Name Priority Date/Time Associated Diagnosis Comments DERMATOPATHOLOGY Routine 12/06/2018 12:0 0 AM CDT documented in this encounter Results * DERMATOPATHOLOGY (12/06/2018 12:00 AM CDT) Case Report Dermatopathology Report Case: [id number] Authorizing Provider: Ismael Munguia MD Collected: 12/06/2018 12:00 AM Pathologist: Gladis Rene MD Received: 12/07/2018 11:39 AM Specimen: Skin, right med chest 9 4:18 PM CDT DERMATOPATHOLOGY LABORATORY Final Diagnosis Specimen A. SKIN, right med chest: BASAL CELL CARCINOMA, SUPERFICIAL MULTIFOCAL ([id number]) 4:18 PM CDT DERMATOPATHOLOGY LABORATORY at 1618 CDT Clinical History R/O BCC. 4:18 PM CDT DERMATOPATHOLOGY LABORATORY Gross Description Specimen A: Received is one formalin filled container labeled with the patient's name and designated right med chest. The specimen consists of a shave biopsy measuring [id number]. Jar 0. 4:18 PM CDT DERMATOPATHOLOGY LABORATORY Microscopic Description Specimen A. SKIN, right med chest: Attached to the undersurface of the epidermis, there are small aggregates of basaloid cells with a high nuclear to cytoplasmic ratio and peripheral palisading. 4:18 PM CDT DERMATOPATHOLOGY LABORATORY Disclaimer An external and internal positive and negative controls are appropriate for the histochemical, immunohistochemical and immunofluorescence stain(s) in this case (if any), except where stated explicitly. The performance characteristics of the stain(s) cited in this report were developed and its performance characteristic determined by the Dermatopathology Laboratory at [facility], directed by Dr. Kerry Rene. These tests need not be, and therefore are not, approved by the [place] Food and Drug Administration. The tests are used for clinical purposes. Billing Codes Specimen Charges Stain Charges 30007 1 4:18 PM CDT DERMATOPATHOLOGY LABORATORY Embedded Images 4:18 PM CDT DERMATOPATHOLOGY LABORATORY Pathology/Cytolog y TISSUE SPECIMEN FROM SKIN / Unknown 12/06/2018 12/07/2018 11:39 AM CDT us Ismael Munguia MD LAB - PATHOLOGY/CYTOLOGY ORD ERABLES Final Result DERMATOPATHOLOGY LABORATORY [facility] - Department of Dermatology [address] [place] [address], [facility] [phone] documented in this encounter Visit Diagnoses Not on filedocumented in this encounter Care Teams Upper Extremity Surgeon Relationship Specialty Start Date End Date Dave Canada MD [address] [place] [address] PCP - General Family Medicine 08/08/24 documented as of this encounter
--- OUTSIDE RECORDS SUMMARY | 2025-06-06 14:11 | XMS_ITS | Encounter Summary ---
Author Organization [facility] Address [address] [place] [address] Care Team Providers Care Embedded Engineer Name Role Phone Dave Canada MD Primary Care Provider [phone] Encounter Details Date Type Department Care Team (Latest Contact Info) Description 06/16/2000 Outpatient Historical HIS [facility] Cintron, Vasu Moore MD NO ADDRESS ON FILE Other screening mammogram (Primary Dx) Social History Tobacco Use Types Packs/Day Years Used Date Smoking Tobacco: Never Assessed Comments Unknown Sex and Gender Information Value Date Recorded Sex Assigned at Not on file Legal Sex Female 3:55 AM ALARM INVESTIGATOR Gender Identity Not on file Sexual Orientation Not on file documented as of this encounter Plan of Treatment Upcoming Encounters Date Type Department Care Team (Late st Contact Info) Description 10/18/2025 1:30 PM ALARM INVESTIGATOR Office Visit [facility] Heart and Vascular Electrophysiology - [address] [address] [facility] [address] [place] [address] [place] [address] [facility] [address] [place] [phone] documented as of this encounter Visit Diagnoses Diagnosis Other screening mammogram- Primary documented in this encounter Additional Health Concerns Infection Onset Date Last Indicated Resolved Time COVID-19 Comment:Added from external infection. Tested at [facility] 07/18/2020 04/02/2022 6:13 AM C DT documented as of this encounter Care Teams Embedded Engineer Relationship Specialty Start Date End Date Dave Canada MD PCP - General Family Practice 01/08/21 documented as of this encounter
--- OUTSIDE RECORDS SUMMARY | 2025-06-06 14:11 | XMS_ITS ---
Blood specimen (specimen) 07/04/2008 6:12 AM CDT 07/04/2008 6:22 AM CDT Nishant Peter HEMATOLOGY ORDERABLES Edited Performing Organization Address [facility] Phone Number INTERFACE SYSTEM Refer to clinic/hospital department [facility] CLIA# [id number] [address] [place] [address] * (ABNORMAL) PROTIME-INR (07/04/2008 6:12 AM CDT) PROTIME 21.8(H) 12.7 - 15.1 Seconds [facility] INR 1.9(H) 0.9 - 1.1 [facility] Comment: INR Therapeutic Range: Adult: 2.0 - 3.0 for pulmonary embolism or prophylaxis against venous thrombosis or systemic embolization. 2.0 - 3.0 for patients with tissue heart valves. 2.5 - 3.5 for patients with mechanical heart valves or post CT. Pediatric (12 years and under): 1.5 - 3.0 Although the target range in children is not well established, INR values of 1.5 - 3.0 are recommended for most patients. Higher values have been used in children with prosthetic cardiac valves and hereditary clotting disorders. (<3 days) therapeutic ranges have not been established. Blood specimen (specimen) 07/04/2008 6:12 AM CDT 07/04/2008 6:22 AM CDT Nishant Green HEMATOLOGY ORDERABLES Final Resu lt Performing Organization Address [facility] Phone Number INTERFACE SYSTEM Refer to clinic/hospital department [facility] CLIA# [id number] [address] [place] [address] * BASIC METABOLIC PANEL (07/04/2008 6:12 AM CDT) BUN 16 6 - 20 mg/dL [facility] CHLORIDE 102 96 - 108 mmol/L [facility] GLUCOSE 91 65 - 99 mg/dL [facility] SODIUM 138 135 - 145 mmol/L [facility] CALCIUM 9.5 8.6 - 10.2 mg/dL [facility] CO2 28 22 - 30 mmol/L [facility] CREATININE 0.85 0.51 - 0.95 mg/dL [facility] POTASSIUM 4.0 3.5 - 4.9 mmol/L [facility] GFR, >60 >=60 mL/min/1.7 sq meter [facility] GFR >60 >=60 mL/min/1.7 sq meter [facility] Comment: Modification of Diet in Renal Disease (MDRD) study formula. Estimated GFR rate interpretative information for both Americans and non- Americans is available on the [facility] at: [email or web address] [facility]: Lab Policies and Procedures [facility]: Reference Ranges - GFR Blood specimen (specimen) 07/04/2008 6:12 AM CDT 07/04/2008 6:22 AM CDT Nishant Green CHEMISTRY ORDERABLES Edited INTERFACE SYSTEM Refer to clinic/hospital department [facility] CLIA# [id number] [address] [place] [address] documented in this encounter Visit Diagnoses Diagnosis Atrial fibrillation (CMS/HCC) Atrial fibrillation documented in this encounter Additional Health Concerns Infection Onset Date Last Indicated Resolved Time COVID-19 Comment:Added from external infection. Tested at [facility] 07/18/2020 04/02/2022 6:13 AM C DT documented as of this encounter Care Teams Lumber Bearer Relationship Specialty Start Date End Date Dave Canada MD PCP - General Family Practice 01/08/21 documented as of this encounter
--- OUTSIDE RECORDS SUMMARY | 2025-06-06 14:11 | XMS_ITS | Encounter Summary ---
Author Organization [facility] Address [address] [place] [address] Care Team Providers Care Sponge Diver Name Role Phone Vinh Welch MD Primary Care Provider [phone] Dave Canada MD Primary Care Provider [phone] Encounter Details Date Type Department Care Team (Late st Contact Info) Description 06/24/2018 Abstract [facility] Conversion Vinh Welch MD [address] [place] [address] Social History Tobacco Use Types Packs/Day Years Used Date Smoking Tobacco: Never Assessed Comments Unknown Sex and Gender Information Value Date Recorded Sex Assigned at Female 09/19/2024 8:22 AM DELIVERY ASSISTANT Legal Sex Female 7:14 PM CDT Gender Identity Not on file Sexual Orientation Not on file documented as of this encounter Miscellaneous Notes * Letter - Vinh Welch MD - 06/24/2018 12:00 AM CDT 2018 Aisha Newton [address] [place] [address] Dear Aisha Newton, Thank you for the trust you have placed in [facility] as your health care team. You are a valued patient at our office and we hope you are well. We are concerned about your health and noticed that you did not keep your last scheduled appointment on 06/24/2018. If your appointment has not been rescheduled, please call the office at to reschedule your appointment as soon as possible. As you are aware, we are dedicated to caring for the whole patient, not just treating an illness. When we schedule appointments, we set aside time and professional resources to meet the individual needs of our patients, including time for one-on-one consultation. When a patient does not come to an appointment or cancels the appointment without sufficient notice, our health care team is not able to take time needed to care for another patient. Cancelling within at least 24 hours of your appointment allows us to prepare our schedule for other patients who need timely care. Please be aware, per our organization's no-show policy, if at least 24 hours' notice is not given two times in one year, the practice will impose a $25 no- show fee. We understand there are occasions when a patient must miss an appointment due to unforeseen circumstances. In this event, please call our office and cancel your appointment as soon as you are able. This allows our staff to schedule another patient in need of care. We are committed to providing you the best care possible. We hope to hear from you soon. Sincerely, [facility] cc: Medical Record VERY ASSISTANT documented in this encounter Plan of Treatment Upcoming Encounters Date Type Department Care Team (Late st Contact Info) Description 06/08/2025 9:40 AM CDT Office Visit [facility] [address] [place] [phone] Dave Canada MD [address] [place] [phone] documented as of this encounter Visit Diagnoses Not on filedocumented in this encounter Additional Health Concerns Infection Onset Date Last Indicated Resolved Time COVID-19 Rule Out 07/08/2020 07/08/2020 07/11/2020 9:40 AM DELIVERY ASSISTANT COVID-19 Rule Out 07/18/2020 07/18/2020 07/23/2020 5:01 AM DELIVERY ASSISTANT COVID-19 Confirmed 07/18/2020 07/18/2020 12:34 AM DELIVERY ASSISTANT COVID-19 Rule Out 07/31/2022 07/31/2022 07/31/2022 8:39 AM DELIVERY ASSISTANT documented as of this encounter Care Teams Sponge Diver Relationship Specialty Start Date End Date Vinh Welch MD PCP - General INTERNAL MEDICINE 09/26/18 03/28/20 Dave Canada MD PCP - General FAMILY PRACTICE 03/29/20 documented as of this encounter
--- OUTSIDE RECORDS SUMMARY | 2025-06-06 14:11 | XMS_ITS | Encounter Summary ---
Author Organization [facility] Address [address] [place] [address] Care Team Providers Care Door Worker Name Role Phone Dave Canada MD Primary Care Provider [phone] Encounter Details Date Type Department Care Team (Latest Contact Info) Description 12/01/2006 Outpatient Historical HIS [facility] Cintron, Vasu Moore MD NO ADDRESS ON FILE Other Screening Mammogram (Primary Dx) Social History Tobacco Use Types Packs/Day Years Used Date Smoking Tobacco: Never Assessed Comments Unknown Sex and Gender Information Value Date Recorded Sex Assigned at Not on file Legal Sex Female 3:55 AM CONTENT WRITER Gender Identity Not on file Sexual Orientation Not on file documented as of this encounter Plan of Treatment Upcoming Encounters Date Type Department Care Team (Late st Contact Info) Description 10/18/2025 1:30 PM CONTENT WRITER Office Visit [facility] Heart and Vascular Electrophysiology - [address] [facility] [address] [address] [facility] [address] [place] [address] [place] [address] [facility] [address] [place] [phone] documented as of this encounter Visit Diagnoses Diagnosis Other screening mammogram- Primary documented in this encounter Additional Health Concerns Infection Onset Date Last Indicated Resolved Time COVID-19 Comment:Added from external infection. Tested at [facility] 07/18/2020 04/02/2022 6:13 AM C DT documented as of this encounter Care Teams Door Worker Relationship Specialty Start Date End Date Dave Canada MD PCP - General Family Practice 01/08/21 documented as of this encounter
== END 2025-06-06 14:02 | disposition home or self-care (01) ==
LOC: ANHFOHIMG 14:04
PROVIDERS: PCP Family Medicine; Visit Provider Obstetrics & Gynecology
DX: Z12.31 Encounter for screening mammogram for malignant neoplasm of breast (principal)
CPT/HCPCS: 77063; 77067